=== PATIENT | female | born 1960 | race Caucasian/White ===

== ENCOUNTER 2018-01-25 16:19 | Inpatient (IN) ==
[2018-01-25] MEDS ORDERED: Albuterol 2.5 MG/3 ML NEBULIZER IH ONE (16:38)
[2018-01-25] MEDS ORDERED: Ipratropium/Albuterol Neb 3 ML IH ONE (16:38)
[2018-01-25] MEDS ORDERED: predniSONE 20 MG TABLET PO ONE (16:38)
[2018-01-25 16:49] LABS: Basophils % 0.6 %; Eosinophils # 0.2 K/mcL (0.0-0.6); Eosinophils % 2.7 %; Hemoglobin 14.8 g/dL (11.5-15.4); Immature Granulocytes % 0.3 % (0-4); Lymphocytes # 1.6 K/mcL (0.6-4.6); Mean Corpuscular HGB Conc 32.9 g/dL (31.6-35.5); Mean Corpuscular Hemoglobin 29.3 pg (28.0-33.3); Mean Corpuscular Volume 89.1 fL (83.0-100.0); Mean Platelet Volume 12.3 fL (9.4-12.4); Monocytes # 0.5 K/mcL (0.0-1.3); Neutrophils # 4.4 K/mcL (1.6-8.9); Platelet Count 163 K/mcL (140-400); Red Blood Count 5.05 M/mcL (3.82-4.97); Red Cell Distribution Width 13.1 % (11.5-14.5); Segmented Neutrophils % 65.4 %
--- NOTE | 2018-01-25 16:53 | Emergency Department Note ---
Disposition Clinical Impression: Acute exacerbation of chronic obstructive airways disease Disposition: Admitted As Inpatient Condition: Fair Referrals: Eduard Hoff MD [Primary Care Provider] - Forms: ED Satisfaction Letter Time of Disposition: 19:30 General Adult HPI - General Chief complaint: ED Shortness of Breath/Dyspnea Stated complaint: PAM Time Seen by Provider: 01/25/18 16:30 Source: patient Mode of arrival: EMS Limitations: no limitations - History of Present Illness HPI Narrative: This is a 57-year-old female with a history of COPD who reports a cough and shortness of breath that has been present for approximately the last 24 hours. Cough is nonproductive. She also reports bilateral chest pain for the last 12- 16 hours. Pain Scale: 5 - Related Data Home Medications Medication Instructions Recorded Confirmed Albuterol Neb [Proventil Neb] 2.5 mg IH Q4HR PRN 03/04/16 03/04/16 Citalopram [CeleXA] 20 mg PO DAILY 03/04/16 03/04/16 Fluticasone/Vilanterol [Breo 1 each IH DAILY 03/04/16 03/04/16 Ellipta 100-25 Mcg INH] Furosemide [Lasix] 20 mg PO DAILY 03/04/16 03/04/16 Gabapentin [Neurontin] 600 mg PO DAILY 03/04/16 03/04/16 Guaifenesin [Mucinex] 600 mg PO DAILY 03/04/16 03/04/16 Lisinopril [Zestril] 5 mg PO DAILY 03/04/16 03/04/16 Spironolactone [Aldactone] 25 mg PO DAILY 03/04/16 03/04/16 Tizanidine HCl [Zanaflex] 4 mg PO TID 03/04/16 03/04/16 TraZODone 50 mg PO HS 03/04/16 03/04/16 Umeclidinium [place] [Incruse 62.5 mcg IH DAILY 03/04/16 03/04/16 Ellipta] Previous Rx's Medication Instructions Recorded Cephalexin [Keflex] 500 mg PO QID #14 capsule 11/09/16 Allergies Allergy/AdvReac Type Severity Reaction Status Date / Time aspirin AdvReac Vomiting Verified 03/04/16 14:18 Sulfa (Sulfonamide AdvReac Vomiting Verified 03/04/16 14:18 Antibiotics) All systems ED: reviewed and negative except as stated. Cardiovascular: Reports: chest pain Respiratory: Reports: cough, dyspnea Past Medical History - Past Medical History Medical history: Reports: cancer, COPD, fibromyalgia, GERD, glaucoma, TIA, venous stasis, other Surgical history: Reports: cholecystectomy, hysterectomy, orthopedic, other Psychiatric history: Reports: anxiety, depression FLASH WELDER history: Reports: no FLASH WELDER history - Social History Smoking Status: Current every day smoker Smokeless Tobacco Status: No Alcohol use: Reports: occasionally Drug use: Reports: none Physical Exam - General Limitations: no limitations General appearance: alert, anxious, in distress (In [id number] restaurant distress) - Head Head exam: atraumatic, normocephalic, normal inspection - Eye Eye exam: Present: normal appearance, PERRL, EOMI. Absent: scleral icterus - Chest Chest inspection: Present: normal inspection, symmetric chest wall rise - Respiratory Respiratory exam: Present: respiratory distress, wheezes (There are extremely wheezes in all amado, no rhonchi), accessory muscle use, prolonged expiratory phase - Cardiovascular Cardiovascular exam: Present: normal rhythm, tachycardia, normal heart sounds - Abdominal Exam Abdominal exam: Present: soft, Non-Tender. Absent: tenderness, distention, guarding, rebound, rigidity - Extremities Exam Extremities exam: Present: pedal edema (There is severe nonpitting bilateral pedal edema consistent with the patient's history of lymphedema) - Neurological Exam Neurological exam: Present: alert, oriented X3 - Psychiatric Psychiatric exam: Present: normal affect, normal mood - Skin Skin exam: Present: warm, dry, intact, normal color Course Course Narrative: This is a 49-year-old female with a history of COPD as well as pulmonary hypertension with 24 hours of shortness of breath with nonproductive cough. Vital Signs Temperature 98.6 F 01/25/18 16:22 Pulse Rate 105 01/25/18 16:22 Respiratory Rate 24 01/25/18 16:22 Blood Pressure 126/83 01/25/18 16:22 O2 Sat by Pulse Oximetry 99 01/25/18 16:22 Temperature 98.1 F 01/25/18 18:03 Pulse Rate 96 01/25/18 18:03 Respiratory Rate 24 01/25/18 18:03 Blood Pressure 140/63 01/25/18 18:03 O2 Sat by Pulse Oximetry 98 01/25/18 18:03 Oxygen Delivery Oxygen Delivery Room Air Medical Decision Making - MDM Narrative Medical decision making narrative: This is a 57 y/o female with COPD exacerbation She failed a walk test. I discussed her case with the stoneworking belt sander hospitalist, who accepted her for admission - Lab Data Lab results reviewed: Yes I reviewed the patient's lab results. Lab results narrative: CBC was unremarkable BMP was unremarkable Troponin was low Result diagrams: 01/25/18 16:36 01/25/18 16:36 Lab Results 01/25/18 01/25/18 Range/Units 16:36 16:36 WBC 6.7 (4.3-11.1) K/mcL RBC 5.05 H (3.82-4.97) M/mcL Hgb 14.8 (11.5-15.4) g/dL Hct 45.0 H (35.3-44.9) % MCV 89.1 (83.0-100.0) fL MCH 29.3 (28.0-33.3) pg MCHC 32.9 (31.6-35.5) g/dL RDW 13.1 (11.5-14.5) % Plt Count 163 (140-400) K/mcL MPV 12.3 (9.4-12.4) fL Immature Gran % 0.3 (0-4) % Seg Neutrophils % 65.4 % Lymphocytes % 23.0 % Monocytes % 8.0 % Eosinophils % 2.7 % Basophils % 0.6 % Neutrophils # 4.4 (1.6-8.9) K/mcL Lymphocytes # 1.6 (0.6-4.6) K/mcL Monocytes # 0.5 (0.0-1.3) K/mcL Eosinophils # 0.2 (0.0-0.6) K/mcL Basophils # 0.0 (0.0-0.2) K/mcL Sodium 138 (136-145) mEq/L Potassium 3.7 (3.5-5.1) mEq/L Chloride 101 (98-107) mEq/L Carbon Dioxide 30 H (23-29) mEq/L BUN 9 (6-20) mg/dL Creatinine 0.97 (0.60-1.20) mg/dL Est GFR ( Amer) > 60 (> 60) Est GFR (Non-Af Amer) 59 L (> 60) BUN/Creatinine Ratio 9 (6-26) Glucose 121 H (70-105) mg/dL Calculated Osmolality 286 (280-300) Calcium 9.2 (8.6-10.3) mg/dL Troponin I < 0.03 (< 0.04) ng/mL - Radiology Data Radiology results reviewed: Yes I reviewed the patient's radiology results. Chest x-ray showed no acute process - EKG Data EKG #1 EKG attestation: Yes I reviewed and interpreted this EKG. EKG results narrative: ECG shows sinus tachycardia at 100 bpm, NH interval is slightly prolonged at 206 ms, right bundle branch block,, ST depression in lead V6 Critical Care Time Critical Care Time: Yes Total Critical Care Time: 15 Attestation: 15 min of CCT independent of separately billable procedures
[2018-01-25 17:13] LABS: BUN/Creatinine Ratio 9 (6-26); Blood Urea Nitrogen 9 mg/dL (6-20); Calcium 9.2 mg/dL (8.6-10.3); Carbon Dioxide 30 mEq/L (23-29); Chloride 101 mEq/L (98-107); Glucose 121 mg/dL (70-105); Osmolality,Calculated 286 (280-300); Potassium 3.7 mEq/L (3.5-5.1); Sodium 138 mEq/L (136-145); eGFR For Non-African Americans 59 (> 60)
[2018-01-25 17:14] LABS: Troponin I < 0.03 ng/mL (< 0.04)
[2018-01-25] MEDS: Acetaminophen 325 MG TABLET PO PRN (22:49)
[2018-01-26] MEDS ORDERED: Naloxone 0.4 MG/ML INJ IVP PRN (01:07)
[2018-01-26] MEDS ORDERED: Albuterol 2.5 MG/3 ML NEBULIZER IH PRN (01:08)
[2018-01-26] MEDS: Ipratropium/Albuterol Neb 3 ML IH SCH ×5 (01:15→23:32)
--- NOTE | 2018-01-26 01:18 | Internal Med History&Physical ---
Date of Encounter: 01/26/18 Time of Encounter: 00:45 Internal Medicine - H&P: HPI Chief complaint: COPD exacerbation Admitted From: Emergency Dept History of present illness: Ms. Dahl is a 57 year old female Patient presented to the emergency room with a 2 day history of difficulty breathing. She states that she is not on oxygen at home, and has increased cough, rattling and wheezing this. She has this every now and then, but for the last 2 days it is increasingly getting worse to the point where she he was scared. She checks her oxygen at home, and it has ranged anywhere between 80% and 93%. Normally she is anywhere between 94% and 98%. She is a 2 pack per day smoker, and has smoked since she was 8 years old. She works as an insurance claims clerk, works from home and rarely goes outside. She says that she basically does not leave her house and gets no exercise. She had been seeing a primary care doctor but has not seen a doctor in over a year since her doctor moved away. In the emergency room, CBC and BMP were within normal limits. Troponin was less than 0.03. Chest x-ray showed no acute findings. She was given breathing treatment, steroids and was attempted to be sent home however she was unable to ambulate very far without becoming hypoxic. She was admitted to hospital for further management. Upon my assessment patient states that she is breathing much better. She was sleeping in the chair prior to my arrival. She denies nausea, vomiting, diarrhea, constipation. She denies chest pain, but does have bilateral shoulder pain which she says is from her difficulty breathing. She denies abdominal pain as well. She says that she has pitting edema in her lower extremities which has been chronic and this is actually better than it has been in the past. She has not taken any medications in over a year since her doctor left. I discussed with her CODE STATUS, and she indicated that she does not want to be resuscitated and did not want to be intubated. She stated that "everyone has an expiration date, and I do not feel like mind should be much longer." Past Med Surg Social Fam HX - Past Medical History Medical history: cancer, COPD, fibromyalgia, GERD, glaucoma, TIA, venous stasis, other Additional medical history: pulmonary hypertension, uterine cancer, venous insufficiency, Reflex sympathic dystrophy (chronic regional pain syndrome) Psychiatric history: anxiety, depression - Past Surgical History Surgical History: cholecystectomy, hysterectomy, orthopedic, other Additional surgical history: tonsil/adnoid removed, left tendon repaired - Social History Smoking Status: Current every day smoker Smokeless Tobacco Status: No Alcohol use: occasionally Drug use: none - Family History Mother Living Status: Still Living Hx Family Cardiac Disorders: Yes Hx Family Respiratory Disorders: Yes (copd) Hx Family Cancer: Yes Hx Family Endocrine Disorder: Yes Hx Family Neuromuscular Disorders: Yes Internal Medicine - H&P: Meds Albuterol Neb [Proventil Neb] 2.5 mg IH Q4HR PRN 03/04/16 [History] Citalopram [CeleXA] 20 mg PO DAILY 03/04/16 [History] Fluticasone/Vilanterol [Breo Ellipta 100-25 Mcg INH] 1 each IH DAILY 03/04/16 [History] Furosemide [Lasix] 20 mg PO DAILY 03/04/16 [History] Gabapentin [Neurontin] 600 mg PO DAILY 03/04/16 [History] Guaifenesin [Mucinex] 600 mg PO DAILY 03/04/16 [History] Lisinopril [Zestril] 5 mg PO DAILY 03/04/16 [History] Spironolactone [Aldactone] 25 mg PO DAILY 03/04/16 [History] Tizanidine HCl [Zanaflex] 4 mg PO TID 03/04/16 [History] TraZODone 50 mg PO HS 03/04/16 [History] Umeclidinium [place] [Incruse Ellipta] 62.5 mcg IH DAILY 03/04/16 [History] Cephalexin [Keflex] 500 mg PO QID #14 capsule 11/09/16 [Rx] Allergy/AdvReac Type Severity Reaction Status Date / Time aspirin AdvReac Vomiting Verified 03/04/16 14:18 Sulfa (Sulfonamide AdvReac Vomiting Verified 03/04/16 14:18 Antibiotics) All Systems PM: A 10-system review of systems was performed and is negative for pertinent findings except as documented above in the HPI. - Constitutional Vitals: Temp Pulse Resp BP Pulse Ox 98.4 F 96 18 111/68 93 01/25/18 23:00 01/25/18 23:00 01/25/18 23:00 01/25/18 23:00 01/25/18 23:00 General appearance: Present: cooperative, morbidly obese, pleasant, no acute distress, answers questions appropriately Exam: As above - Head Head exam: Present: normal inspection - Eye Eye exam: Present: EOMI, normal appearance - Neck Neck exam general surgery: Absent: tenderness - Respiratory Respiratory exam: Present: prolonged expiratory phase, respiratory distress, wheezes. Absent: chest wall tenderness, CTAB - Cardiovascular Cardiovascular exam: Present: RRR. Absent: diastolic murmur, systolic murmur - GI/Abdominal GI/Abdominal exam: Present: normal bowel sounds, soft. Absent: tenderness - Extremities Exam Extremities exam: Present: pedal edema, warm, radial pulses palpable and s ymmetrical. Absent: calf tenderness, tenderness Additional comments: 3+ pitting edema in lower extremities. Chronic skin changes - Neurological Exam Neurological exam: Present: no focal deficits, strengths equal and symetr throughout. Absent: motor sensory deficit, facial droop, speech deficit Additional comments: Patient unable to walk very far - Skin Skin exam: Present: dry, normal color, warm Internal Med - H&P Results - Labs CBC & Chem 7: 01/26/18 03:25 01/26/18 03:25 Labs: Short CBC 01/25/18 Range/Units 16:36 WBC 6.7 (4.3-11.1) K/mcL Hgb 14.8 (11.5-15.4) g/dL Hct 45.0 H (35.3-44.9) % Plt Count 163 (140-400) K/mcL Neutrophils # 4.4 (1.6-8.9) K/mcL BMP 01/25/18 16:36 Sodium 138 Potassium 3.7 Chloride 101 Carbon Dioxide 30 H BUN 9 Creatinine 0.97 Glucose 121 H Calcium 9.2 Cardiac Enzymes 01/25/18 Range/Units 16:36 Troponin I < 0.03 (< 0.04) ng/mL - Impressions ITS Impressions Chest X-Ray 01/25/18 16:38 IMPRESSION: No acute findings. No change. D/ / 01/25/2018 17:46:55 Chris Mcmillan MD / [email or web address] Interpreting Provider: Chris Mcmillan MD - Assessment and plan (1) Acute exacerbation of chronic obstructive airways disease Current Visit: Yes Status: Acute Assessment and plan: Patient has had difficulty breathing for several days now. Continue breathing treatments Prednisone 40mg daily Azithromycin 500mg daily Nicotine patch Oxygen supplementation as needed. (2) Shortness of breath Current Visit: Yes Status: Acute Assessment and plan: Secondary to COPD exacerbation, treatment as above. (3) Lower extremity edema Current Visit: Yes Status: Acute Assessment and plan: Lasix 20mg IV. Patient has history of being on lasix 20mg daily. Has 3+ pitting edema. Consider echocardiogram today (4) Nicotine dependence Current Visit: Yes Status: Acute Assessment and plan: Nicotine patch. Patient also uses a vape. Qualifiers: Qualified Code(s): F17.210 - Nicotine dependence, cigarettes, uncomplicated (5) Noncompliance with medication regimen Current Visit: Yes Status: Acute Assessment and plan: Has not seen a medical provider in over 1 year. Will need set up with PCP at discharge. (6) DVT prophylaxis Current Visit: Yes Status: Acute Assessment and plan: subcutaneous Heparin - Time Spent With Patient Total time spent is greater than 50% in coordination of care (as documented) at patient's floor/unit and/or counseling patient: Greater than 35 minutes
[2018-01-26] MEDS: Azithromycin 500 MG in D5% in Water 250 ML IVPB SCH (01:56)
[2018-01-26] MEDS: Nicotine 21 MG PATCH.TD24 TD SCH (02:13)
[2018-01-26 04:38] LABS: Hematocrit 41.4 % (35.3-44.9); Hemoglobin 13.8 g/dL (11.5-15.4); Mean Corpuscular HGB Conc 33.3 g/dL (31.6-35.5); Mean Corpuscular Hemoglobin 29.7 pg (28.0-33.3); Mean Corpuscular Volume 89.2 fL (83.0-100.0); Mean Platelet Volume 12.8 fL (9.4-12.4); Platelet Count 162 K/mcL (140-400); Red Blood Count 4.64 M/mcL (3.82-4.97); Red Cell Distribution Width 13.2 % (11.5-14.5)
[2018-01-26 05:18] LABS: BUN/Creatinine Ratio 14 (6-26); Blood Urea Nitrogen 12 mg/dL (6-20); Calcium 9.3 mg/dL (8.6-10.3); Carbon Dioxide 27 mEq/L (23-29); Chloride 102 mEq/L (98-107); Glucose 243 mg/dL (70-105); Osmolality,Calculated 286 (280-300); Potassium 4.7 mEq/L (3.5-5.1); Sodium 134 mEq/L (136-145); eGFR For Non-African Americans > 60 (> 60)
[2018-01-26] MEDS: *HR* Heparin 5,000 UNIT/ML VIAL SQ SCH ×3 (06:19→22:49)
[2018-01-26] MEDS: Furosemide 20 MG/2 ML VIAL IVP SCH (08:41)
[2018-01-26] MEDS ORDERED: predniSONE 20 MG TABLET PO SCH (09:00)
--- NOTE | 2018-01-26 15:02 | Internal Med Progress Note ---
Hospitalist Progress Note - Encounter Date of Encounter: 01/26/18 Time of Encounter: 14:59 - Subjective Interval History: Continue to have dyspnea, worse with exertion. Non-productive cough is persistent - Exam Vitals: Temp Pulse Resp BP Pulse Ox 98.1 F 77 16 113/56 96 01/26/18 11:29 01/26/18 11:29 01/26/18 11:29 01/26/18 11:29 01/26/18 11:29 Exam: PHYSICAL EXAMINATION: GENERAL: The patient is a morbidly obese female who is alert and oriented x3. HEENT: Head is normocephalic and atraumatic. Extraocular muscles are intact. Pupils are equal, round, and reactive to light and accommodation. NECK: Supple. No carotid bruits. No lymphadenopathy or thyromegaly. LUNGS: Diminished to auscultation AP&L. HEART: Regular rate and rhythm, S1, S2 without murmurs, rubs or gallops. No JVD. ABDOMEN: Soft, nontender, and nondistended. Positive bowel sounds. No hepatosplenomegaly was noted. EXTREMITIES: Without any cyanosis, clubbing, rash, lesions. Positive for lymphedema, PT/DP pulses 1+ B/L NEUROLOGIC: Cranial nerves II through XII are grossly intact. SKIN: No ulceration or induration present. Positive for stasis dermatitis, and dry cracked, flaky skin on BLE - Assessment and Plan (1) Acute exacerbation of chronic obstructive airways disease Current Visit: Yes Status: Acute Assessment and Plan: Patient reporting progressive dyspnea, fatigue, and cough greater than 2 months Worse over the last week; history of COPD, noncompliant with medication regimen and/or follow-up Clinically, patient remained stable. Continues to have some mild conversational dyspnea, prolonged expiratory phase Lungs are diminished throughout with diminished air movement The patient reports she does not wear O2 at home hours requiring 5 L nasal cannula at this time to maintain SPO2 greater than 92% Continue treatment with aerosols, IV steroids and azithromycin Wean O2 as appropriate; continue nasal cannula for respiratory support Monitor SPO2 continuously Appears to easily fatigue with exertion Obtain PT/OT consult for further evaluation food services director for DC planning (2) Acute respiratory failure with hypoxia Current Visit: Yes Status: Acute Assessment and Plan: as above (3) Obesity hypoventilation syndrome Current Visit: Yes Status: Acute Assessment and Plan: discussed weight loss (4) Lower extremity edema Current Visit: Yes Status: Acute Assessment and Plan: h/o venous insufficiency chronic lymphedema BLE with chronic stasis dermatitis continue lasix 20mg IV (5) Nicotine dependence Current Visit: Yes Status: Acute Assessment and Plan: discussed tobacco cessation continue nicotine patch (6) Noncompliance with medication regimen Current Visit: Yes Status: Acute Assessment and Plan: Last PCP visit > 1 year ago will need PCP set-up at D/C will need to f/u with pulmonology at d/c could not find formal pulm testing; consider outpatient study DVT Prophylaxis: SC Heparin BID - Time Spent with Patient Total time spent is greater than 50% in coordination of care (as documented) at patient's floor/unit and/or counseling patient: less than 15 minutes Plan of Care Discussed with: patient Internal Medicine: Result - Labs CBC & Chem 7: 01/26/18 03:25 01/26/18 03:25 Labs: Short CBC 01/25/18 01/26/18 Range/Units 16:36 03:25 WBC 6.7 4.8 (4.3-11.1) K/mcL Hgb 14.8 13.8 (11.5-15.4) g/dL Hct 45.0 H 41.4 (35.3-44.9) % Plt Count 163 162 (140-400) K/mcL Neutrophils # 4.4 (1.6-8.9) K/mcL BMP 01/25/18 01/26/18 16:36 03:25 Sodium 138 134 L Potassium 3.7 4.7 D Chloride 101 102 Carbon Dioxide 30 H 27 BUN 9 12 Creatinine 0.97 0.84 Glucose 121 H 243 H Calcium 9.2 9.3 Cardiac Enzymes 01/25/18 Range/Units 16:36 Troponin I < 0.03 (< 0.04) ng/mL - Impressions Impressions Chest X-Ray 01/25/18 16:38 IMPRESSION: No acute findings. No change. D/ / 01/25/2018 17:46:55 Chris Mcmillan MD / marya Interpreting Provider: Chris Mcmillan MD Consult Discharge Plan - Plan Referrals: Eduard Hoff MD [Primary Care Provider] - (5) Nicotine dependence Qualifiers: Qualified Code(s): F17.210 - Nicotine dependence, cigarettes, uncomplicated
[2018-01-26] MEDS: Acetaminophen 325 MG TABLET PO PRN (19:30)
[2018-01-27] MEDS ORDERED: Ipratropium/Albuterol Neb 3 ML IH ONE (01:48)
[2018-01-27] MEDS: Azithromycin 500 MG in D5% in Water 250 ML IVPB SCH (02:00)
[2018-01-27] MEDS: Ipratropium/Albuterol Neb 3 ML IH SCH ×6 (03:40→23:03)
[2018-01-27 03:54] LABS: Basophils % 0.3 %; Eosinophils # 0.1 K/mcL (0.0-0.6); Eosinophils % 0.9 %; Hematocrit 38.6 % (35.3-44.9); Hemoglobin 12.8 g/dL (11.5-15.4); Immature Granulocytes % 0.5 % (0-4); Lymphocytes # 2.3 K/mcL (0.6-4.6); Lymphocytes % 26.6 %; Mean Corpuscular HGB Conc 33.2 g/dL (31.6-35.5); Mean Corpuscular Hemoglobin 29.6 pg (28.0-33.3); Mean Corpuscular Volume 89.4 fL (83.0-100.0); Mean Platelet Volume 12.5 fL (9.4-12.4); Monocytes # 0.8 K/mcL (0.0-1.3); Monocytes % 9.3 %; Neutrophils # 5.4 K/mcL (1.6-8.9); Platelet Count 158 K/mcL (140-400); Red Blood Count 4.32 M/mcL (3.82-4.97); Red Cell Distribution Width 13.2 % (11.5-14.5); Segmented Neutrophils % 62.4 %
[2018-01-27 04:14] LABS: BUN/Creatinine Ratio 19 (6-26); Blood Urea Nitrogen 19 mg/dL (6-20); Calcium 8.8 mg/dL (8.6-10.3); Carbon Dioxide 29 mEq/L (23-29); Chloride 101 mEq/L (98-107); Glucose 193 mg/dL (70-105); Osmolality,Calculated 290 (280-300); Potassium 3.9 mEq/L (3.5-5.1); Sodium 136 mEq/L (136-145); eGFR For Non-African Americans 58 (> 60)
[2018-01-27] MEDS: *HR* Heparin 5,000 UNIT/ML VIAL SQ SCH ×3 (04:49→21:23)
[2018-01-27] MEDS ORDERED: MethylPREDNISolone 40 MG/ML VIAL IVP SCH (06:00)
[2018-01-27] MEDS ORDERED: Perflutren Lipid Microsphere 1.3 ML in 0.9 % Sodium Chloride 8.7 ML IVP ONE (08:26)
[2018-01-27] MEDS: Nicotine 21 MG PATCH.TD24 TD SCH (09:02)
[2018-01-27] MEDS: Furosemide 20 MG/2 ML VIAL IVP SCH (09:04)
--- NOTE | 2018-01-27 09:33 | Internal Med Progress Note ---
Hospitalist Progress Note - Encounter Date of Encounter: 01/27/18 Time of Encounter: 09:36 - Subjective Interval History: Patient seen and evaluated at bedside. In mild/moderate distress due to cough and as of breath. Denies chest pain, abdominal pain. Patient reports that for about a year she has been having unintentional resting tremors in the lower and upper extremities. - Exam Vitals: Temp Pulse Resp BP Pulse Ox 97.8 F 84 16 118/69 97 01/27/18 07:02 01/27/18 07:02 01/27/18 08:04 01/27/18 07:02 01/27/18 08:04 Exam: General: Alert and oriented 4. In mild/moderate distress due to cough and wheezing, shortness of breath. Skin: Normal color, no rash, no lesions. HEENT: EOM, pupils equal, round and reactive. Cardiovascular: RRR, Normal S1 & S2, no rubs, murmurs or gallops. JVD not appreciated due to short neck. Lungs: Scattered bilateral expiratory and inspiratory wheezing, no crackles, rales. Abdomen: Obese, Soft, non-tender, no rigidity. Extremities: Chronic venous insufficiency skin changes in the lower extremities. Neurological: Normal cognition and motor skills. Rest of the physical exam is non contributory - Assessment and Plan (1) Acute exacerbation of chronic obstructive airways disease Current Visit: Yes Status: Acute Assessment and Plan: Scattered bilateral wheezing. In mild respiratory distress due to cough and wh eezing. Plan Increase Solu-Medrol to 60mg/iv every 8 hours Duo-Nebs Q4RT scheduled Continue albuterol nebs when necessary Incentive spirometry ABG Patient educated about importance of smoking cessation. Continue O2 by nasal cannula, titrate for O2 sat duration more than 92%. As patient is on high dose IV steroids will start lispro high dose sliding scale Accu-checks AC/HS Continue furosemide 20 mg IV daily. Started on empiric antibiotic coverage Sputum cultures and Gram stain Urine for Legionella and strep (2) Acute respiratory failure with hypoxia Current Visit: Yes Status: Acute Assessment and Plan: Most likely secondary to COPD exacerbation. Patient still requiring 5 L of oxygen by nasal cannula. Plan of care as above (3) Lower extremity edema Current Visit: Yes Status: Chronic Assessment and Plan: Patient has a history of chronic lymphedema and venous insufficiency. will order Venous duplex of the lower extremity bilaterally. (4) Nicotine dependence Current Visit: Yes Status: Chronic Assessment and Plan: Continue nicotine patch. (5) Obesity hypoventilation syndrome Current Visit: Yes Status: Chronic (6) Occasional tremors Current Visit: Yes Status: Acute Assessment and Plan: Patient complains of occasional wheezing intentional tremors of the upper and lower extremities. She also reports tremors while she is sleeping. These could be secondary to Possible benign essential tremors Recommended neurology follow-up When wheezing has resolved consider starting the patient on a trial of low dose bb. iron panel (7) Hyperglycemia Current Visit: Yes Status: Acute Assessment and Plan: No documented diabetes history. Possible due to her steroids A1c Carb controlled diet Started on lispro sliding scale high-dose. DVT Prophylaxis: Continue heparin 5000 units subcutaneous every 8 or DVT prophylaxis - Summary of Assessment and Plan Summary of Assessment and Plan: Patient to remain in the hospital. Still reporting respiratory distress. Requiring 5 L of oxygen. - Time Spent with Patient Total time spent is greater than 50% in coordination of care (as documented) at patient's floor/unit and/or counseling patient: 25 - 35 minutes Plan of Care Discussed with: patient (And the nurse) Internal Medicine: Result - Labs CBC & Chem 7: 01/27/18 03:25 01/27/18 03:25 Labs: Short CBC 01/27/18 Range/Units 03:25 WBC 8.6 D (4.3-11.1) K/mcL Hgb 12.8 (11.5-15.4) g/dL Hct 38.6 (35.3-44.9) % Plt Count 158 (140-400) K/mcL Neutrophils # 5.4 (1.6-8.9) K/mcL BMP 01/27/18 03:25 Sodium 136 Potassium 3.9 Chloride 101 Carbon Dioxide 29 BUN 19 Creatinine 0.99 Glucose 193 H Calcium 8.8 Consult Discharge Plan - Plan Referrals: dEuard Hoff MD [Primary Care Provider] - (4) Nicotine dependence Qualifiers: Nicotine product type: cigarettes Substance use status: uncomplicated Qualified Code(s): F17.210 - Nicotine dependence, cigarettes, uncomplicated
[2018-01-27] MEDS ORDERED: *HR* Dextrose 50 % in Water (Syg) 50 ML SYRINGE IVP PRN (09:34)
[2018-01-27] MEDS ORDERED: Dextrose Gel 15 GM/37.5 ML TUBE PO PRN ×2 (09:34)
[2018-01-27] MEDS ORDERED: D5% in Water 1,000 ML IVC PRN (09:34)
[2018-01-27] MEDS: MethylPREDNISolone 40 MG/ML VIAL IVP SCH ×2 (11:00→17:54)
[2018-01-27] MEDS: Insulin LISPRO 300 UNITS/3 ML VIAL SQ SCH ×2 (11:15→17:54)
[2018-01-27 12:00] LABS: ABG Base Excess 6 mEq/L (-2 to 3); ABG HCO3 32 mEq/L (21-27); ABG Oxygen Saturation 92 % (95-98); ABG PCO2 47 mmHg (35-45); ABG PH 7.44 pH Units (7.32-7.45); ABG PO2 62 mmHg (85-104); ABG TCO2 33 mEq/L (20-26)
[2018-01-28] MEDS: MethylPREDNISolone 40 MG/ML VIAL IVP SCH ×3 (03:07→18:26)
[2018-01-28] MEDS: Azithromycin 500 MG in D5% in Water 250 ML IVPB SCH (03:07)
[2018-01-28] MEDS: Ipratropium/Albuterol Neb 3 ML IH SCH ×6 (03:39→22:57)
[2018-01-28 05:05] LABS: Basophils % 0.1 %; Hematocrit 42.1 % (35.3-44.9); Hemoglobin 14.1 g/dL (11.5-15.4); Immature Granulocytes % 0.7 % (0-4); Lymphocytes # 1.1 K/mcL (0.6-4.6); Lymphocytes % 15.3 %; Mean Corpuscular HGB Conc 33.5 g/dL (31.6-35.5); Mean Corpuscular Hemoglobin 29.8 pg (28.0-33.3); Mean Platelet Volume 12.6 fL (9.4-12.4); Monocytes # 0.2 K/mcL (0.0-1.3); Monocytes % 2.5 %; Neutrophils # 5.6 K/mcL (1.6-8.9); Platelet Count 171 K/mcL (140-400); Red Blood Count 4.73 M/mcL (3.82-4.97); Red Cell Distribution Width 13.3 % (11.5-14.5); Segmented Neutrophils % 81.4 %
[2018-01-28 05:24] LABS: BUN/Creatinine Ratio 22 (6-26); Blood Urea Nitrogen 20 mg/dL (6-20); Calcium 9.7 mg/dL (8.6-10.3); Carbon Dioxide 30 mEq/L (23-29); Chloride 98 mEq/L (98-107); Glucose 265 mg/dL (70-105); Magnesium 2.3 mg/dL (1.6-2.6); Osmolality,Calculated 290 (280-300); Potassium 4.4 mEq/L (3.5-5.1); Sodium 134 mEq/L (136-145); eGFR For Non-African Americans > 60 (> 60)
[2018-01-28] MEDS: *HR* Heparin 5,000 UNIT/ML VIAL SQ SCH ×3 (05:29→21:01)
[2018-01-28 05:55] LABS: Estimated Average Glucose 114 mg/dl; Hemoglobin A1C 5.6 %
[2018-01-28] MEDS: Furosemide 20 MG/2 ML VIAL IVP SCH (08:02)
[2018-01-28] MEDS: Nicotine 21 MG PATCH.TD24 TD SCH (08:02)
[2018-01-28] MEDS: Insulin LISPRO 300 UNITS/3 ML VIAL SQ SCH ×3 (08:03→17:49)
[2018-01-28] MEDS: Acetaminophen 325 MG TABLET PO PRN ×2 (10:24→21:01)
[2018-01-28 11:28] LABS: Adenovirus Not Detected (Not Detect); Bordetella Pertussis Not Detected (Not Detect); Chlamydophila pneumoniae Not Detected (Not Detect); Coronavirus 229E Not Detected (Not Detect); Coronavirus HKU1 Not Detected (Not Detect); Coronavirus NL63 Not Detected (Not Detect); Coronavirus OC43 Not Detected (Not Detect); Human Metapneumovirus Not Detected (Not Detect); Human Rhinovirus/Enterovirus DETECTED (Not Detect); Influenza A Subtype 2009 H1 Not Detected (Not Detect); Influenza A Untypeable Not Detected (Not Detect); Influenza B Not Detected (Not Detect); Mycoplasma pneumoniae Not Detected (Not Detect); Parainfluenza Virus 1 Not Detected (Not Detect); Parainfluenza Virus 2 Not Detected (Not Detect); Parainfluenza Virus 3 Not Detected (Not Detect); Parainfluenza Virus 4 Not Detected (Not Detect); Respiratory Syncytial Virus Not Detected (Not Detect)
--- NOTE | 2018-01-28 13:03 | Internal Med Progress Note ---
Hospitalist Progress Note - Encounter Date of Encounter: 01/28/18 Time of Encounter: 09:00 - Subjective Interval History: Patient was seen and examined at bedside. She is sitting up in a chair at bedside. Has been experiencing increasing cough however no sputum production. Denies any shortness of breath or chest pain at this time. - Exam Vitals: Temp Pulse Resp BP Pulse Ox 97.9 F 96 20 159/62 94 01/28/18 11:52 01/28/18 11:52 01/28/18 11:52 01/28/18 11:52 01/28/18 11:52 Exam: General: Alert and oriented 4. In mild/moderate distress due to cough and whe ezing, shortness of breath. Skin: Normal color, no rash, no lesions. HEENT: EOM, pupils equal, round and reactive. Cardiovascular: RRR, Normal S1 & S2, no rubs, murmurs or gallops. JVD not appreciated due to short neck. Lungs: Scattered bilateral expiratory and inspiratory wheezing, no crackles, ra les.-Moist nonproductive cough Abdomen: Obese, Soft, non-tender, no rigidity. Extremities: Chronic venous insufficiency skin changes in the lower extremities. Neurological: Normal cognition and motor skills. Rest of the physical exam is non contributory - Assessment and Plan (1) Acute exacerbation of chronic obstructive airways disease Current Visit: Yes Status: Acute Assessment and Plan: Scattered bilateral wheezing. In mild respiratory distress due to cough and wheezing. Plan Increase Solu-Medrol to 60mg/iv every 8 hours Duo-Nebs Q4RT scheduled Continue albuterol nebs when necessary Incentive spirometry ABG Patient educated about importance of smoking cessation. Continue O2 by nasal cannula, titrate for O2 sat duration more than 92%. As patient is on high dose IV steroids will start lispro high dose sliding scale Accu-checks AC/HS Continue furosemide 20 mg IV daily. Started on empiric antibiotic coverage Sputum cultures and Gram stain Urine for Legionella and strep 01/27 Continues to have scattered wheezes bilaterally. Continues to have moist nonproductive cough We will continue with Solu-Medrol 60 mg IV every 8 Continue with DuoNeb's Continue with oxygen titrated to maintain SPO2 greater than 92% Continue with azithromycin We will add Mucinex Check respiratory panel Sputum culture Urine for Legionella and strep-are negative (2) Lower extremity edema Current Visit: Yes Status: Chronic Assessment and Plan: Patient has a history of chronic lymphedema and venous insufficiency. will order Venous duplex of the lower extremity bilaterally. 01/28 History of chronic lymphedema and venous insufficiency Venous duplex of lower extremities ordered -pending results (3) Nicotine dependence Current Visit: Yes Status: Chronic Assessment and Plan: Continue nicotine patch. 01/28 Encouraged patient to stop smoking will continue nicotine patch (4) Obesity hypoventilation syndrome Current Visit: Yes Status: Chronic Assessment and Plan: discussed weight loss 01/28 Encouraged lifestyle changes including weight loss and exercise (5) Acute respiratory failure with hypoxia Current Visit: Yes Status: Acute Assessment and Plan: Most likely secondary to COPD exacerbation. Patient still requiring 5 L of oxygen by nasal cannula. Plan of care as above 01/28 Most likely secondary to COPD exacerbation Currently on 2 L nasal cannula See above (6) Occasional tremors Current Visit: Yes Status: Acute Assessment and Plan: Patient complains of occasional wheezing intentional tremors of the upper and lower extremities. She also reports tremors while she is sleeping. These could be secondary to Possible benign essential tremors Recommended neurology follow-up When wheezing has resolved consider starting the patient on a trial of low dose bb. iron panel 01/28 Patient will follow-up with neurology as outpatient- May trial low-dose beta carolin once wheezing has resolved Iron panel within normal limits (7) Hyperglycemia Current Visit: Yes Status: Acute Assessment and Plan: No documented diabetes history. Possible due to her steroids A1c Carb controlled diet Started on lispro sliding scale high-dose. 01/28 Blood glucose continues to be elevated most likely secondary to high-dose steroi ds A1c is 5.6 Continue with Accu-Cheks before meals at bedtime with sliding scale insulin at high-dose DVT Prophylaxis: Continue heparin 5000 units subcutaneous every 8 or DVT prophylaxis - Time Spent with Patient Total time spent is greater than 50% in coordination of care (as documented) at patient's floor/unit and/or counseling patient: Internal Medicine: Result - Labs CBC & Chem 7: 01/28/18 04:24 01/28/18 04:24 Labs: Short CBC 01/28/18 Range/Units 04:24 WBC 6.9 (4.3-11.1) K/mcL Hgb 14.1 (11.5-15.4) g/dL Hct 42.1 (35.3-44.9) % Plt Count 171 (140-400) K/mcL Neutrophils # 5.6 (1.6-8.9) K/mcL BMP 01/28/18 04:24 Sodium 134 L Potassium 4.4 Chloride 98 Carbon Dioxide 30 H BUN 20 Creatinine 0.89 Glucose 265 H Calcium 9.7 - ABG Interpretation ABG results: ABG ABG pH 7.44 pH Units (7.32-7.45) 01/27/18 11:55 ABG pCO2 47 mmHg (35-45) H 01/27/18 11:55 ABG pO2 62 mmHg (85-104) L 01/27/18 11:55 ABG O2 Saturation 92 % (95-98) L 01/27/18 11:55 Consult Discharge Plan - Plan Referrals: Eduard Hoff MD [Primary Care Provider] - (3) Nicotine dependence Qualifiers: Nicotine product type: cigarettes Substance use status: uncomplicated Qualified Code(s): F17.210 - Nicotine dependence, cigarettes, uncomplicated
[2018-01-29] MEDS: Azithromycin 500 MG in D5% in Water 250 ML IVPB SCH (02:13)
[2018-01-29] MEDS: MethylPREDNISolone 40 MG/ML VIAL IVP SCH ×3 (02:14→17:14)
[2018-01-29] MEDS: Ipratropium/Albuterol Neb 3 ML IH SCH ×6 (03:12→23:49)
[2018-01-29] MEDS: *HR* Heparin 5,000 UNIT/ML VIAL SQ SCH ×3 (05:20→21:15)
[2018-01-29 05:42] LABS: Basophils % 0.1 %; Immature Granulocytes % 0.5 % (0-4); Lymphocytes # 1.1 K/mcL (0.6-4.6); Lymphocytes % 15.2 %; Mean Corpuscular HGB Conc 33.3 g/dL (31.6-35.5); Mean Corpuscular Hemoglobin 29.9 pg (28.0-33.3); Mean Corpuscular Volume 89.7 fL (83.0-100.0); Mean Platelet Volume 12.3 fL (9.4-12.4); Monocytes # 0.2 K/mcL (0.0-1.3); Neutrophils # 5.9 K/mcL (1.6-8.9); Platelet Count 170 K/mcL (140-400); Red Blood Count 4.68 M/mcL (3.82-4.97); Red Cell Distribution Width 13.2 % (11.5-14.5); Segmented Neutrophils % 81.2 %
[2018-01-29 06:02] LABS: BUN/Creatinine Ratio 22 (6-26); Blood Urea Nitrogen 22 mg/dL (6-20); Calcium 9.7 mg/dL (8.6-10.3); Carbon Dioxide 31 mEq/L (23-29); Chloride 97 mEq/L (98-107); Glucose 229 mg/dL (70-105); Osmolality,Calculated 291 (280-300); Potassium 4.3 mEq/L (3.5-5.1); Sodium 135 mEq/L (136-145); eGFR For Non-African Americans 56 (> 60)
[2018-01-29] MEDS: Nicotine 21 MG PATCH.TD24 TD SCH (08:26)
[2018-01-29] MEDS: Insulin LISPRO 300 UNITS/3 ML VIAL SQ SCH ×3 (08:27→17:13)
[2018-01-29] MEDS: Furosemide 20 MG/2 ML VIAL IVP SCH (08:28)
[2018-01-29] MEDS: Acetaminophen 325 MG TABLET PO PRN ×2 (08:36→21:14)
--- NOTE | 2018-01-29 16:32 | Internal Med Progress Note ---
Hospitalist Progress Note - Encounter Date of Encounter: 01/29/18 Time of Encounter: 10:00 - Subjective Interval History: Patient was seen and examined at bedside. She is sitting up in a chair at bedside. Denies any chest pain has been ambulating in the room still requires oxygen supplementation. Continues to have cough unable to cough up sputum - Exam Vitals: Temp Pulse Resp BP Pulse Ox 97.6 F 75 14 127/62 99 01/29/18 15:28 01/29/18 15:28 01/29/18 16:20 01/29/18 15:28 01/29/18 16:20 Exam: General: Alert and oriented 4. In mild/moderate distress due to cough and wheezing, shortness of breath. Skin: Normal color, no rash, no lesions. HEENT: EOM, pupils equal, round and reactive. Cardiovascular: RRR, Normal S1 & S2, no rubs, murmurs or gallops. JVD not appreciated due to short neck. Lungs: Scattered bilateral expiratory and inspiratory wheezing, no crackles, rales.-Moist nonproductive cough Abdomen: Obese, Soft, non-tender, no rigidity. Extremities: Chronic venous insufficiency skin changes in the lower extremities. Neurological: Normal cognition and motor skills. Rest of the physical exam is non contributory - Assessment and Plan (1) Acute exacerbation of chronic obstructive airways disease Current Visit: Yes Status: Acute Assessment and Plan: Scattered bilateral wheezing. In mild respiratory distress due to cough and wheezing. Plan Increase Solu-Medrol to 60mg/iv every 8 hours Duo-Nebs Q4RT scheduled Continue albuterol nebs when necessary Incentive spirometry ABG Patient educated about importance of smoking cessation. Continue O2 by nasal cannula, titrate for O2 sat duration more than 92%. As patient is on high dose IV steroids will start lispro high dose sliding scale Accu-checks AC/HS Continue furosemide 20 mg IV daily. Started on empiric antibiotic coverage Sputum cultures and Gram stain Urine for Legionella and strep 01/28 Continues to have scattered wheezes bilaterally. Continues to have moist nonproductive cough We will continue with Solu-Medrol 60 mg IV every 8 Continue with DuoNeb's Continue with oxygen titrated to maintain SPO2 greater than 92% Continue with azithromycin We will add Mucinex Check respiratory panel Sputum culture Urine for Legionella and strep-are negative 01/29 Respiratory effort has improved. Lung sounds with faint wheezes bilaterally continues to have nonproductive cough Continue with Solu-Medrol Continue with DuoNeb's Continue with oxygen titrated to maintain SPO2 greater than 90% Continue with azithromycin Continue to Mucinex Respiratory panel does show entero/rhino Awaiting sputum culture Urine for Legionella and strep are negative (2) Lower extremity edema Current Visit: Yes Status: Chronic Assessment and Plan: Patient has a history of chronic lymphedema and venous insufficiency. will order Venous duplex of the lower extremity bilaterally. 01/28 History of chronic lymphedema and venous insufficiency Venous duplex of lower extremities ordered -pending results 01/29 History of chronic lymphedema and venous insufficiency-venous duplex of lower extremities pending (3) Nicotine dependence Current Visit: Yes Status: Chronic Assessment and Plan: Continue nicotine patch. 01/28 Encouraged patient to stop smoking will continue nicotine patch (4) Obesity hypoventilation syndrome Current Visit: Yes Status: Chronic Assessment and Plan: discussed weight loss 01/28 Encouraged lifestyle changes including weight loss and exercise 01/29 Encouraged lifestyle changes weight loss and exercise (5) Acute respiratory failure with hypoxia Current Visit: Yes Status: Acute Assessment and Plan: Most likely secondary to COPD exacerbation. Patient still requiring 5 L of oxygen by nasal cannula. Plan of care as above 01/28 Most likely secondary to COPD exacerbation Currently on 2 L nasal cannula See above 01/29 Secondary to COPD exacerbation Continues to require oxygen supplementation See above (6) Occasional tremors Current Visit: Yes Status: Acute Assessment and Plan: Patient complains of occasional wheezing intentional tremors of the upper and lower extremities. She also reports tremors while she is sleeping. These could be secondary to Possible benign essential tremors Recommended neurology follow-up When wheezing has resolved consider starting the patient on a trial of low dose bb. iron panel 01/28 Patient will follow-up with neurology as outpatient- May trial low-dose beta carolin once wheezing has resolved Iron panel within normal limits 01/29 Patient follow neurology as outpatient May trial low-dose beta carolin once wheezing has resolved Iron panel is within normal limits (7) Hyperglycemia Current Visit: Yes Status: Acute Assessment and Plan: No documented diabetes history. Possible due to her steroids A1c Carb controlled diet Started on lispro sliding scale high-dose. 01/28 Blood glucose continues to be elevated most likely secondary to high-dose st eroids A1c is 5.6 Continue with Accu-Cheks before meals at bedtime with sliding scale insulin at high-dose 01/29 Continue to monitor continued Accu-Cheks before meals at bedtime Regular Insulin DVT Prophylaxis: Continue heparin 5000 units subcutaneous every 8 or DVT prophylaxis - Time Spent with Patient Total time spent is greater than 50% in coordination of care (as documented) at patient's floor/unit and/or counseling patient: Internal Medicine: Result - Labs CBC & Chem 7: 01/29/18 05:27 01/29/18 05:27 Labs: Short CBC 01/29/18 Range/Units 05:27 WBC 7.3 (4.3-11.1) K/mcL Hgb 14.0 (11.5-15.4) g/dL Hct 42.0 (35.3-44.9) % Plt Count 170 (140-400) K/mcL Neutrophils # 5.9 (1.6-8.9) K/mcL BMP 01/29/18 05:27 Sodium 135 L Potassium 4.3 Chloride 97 L Carbon Dioxide 31 H BUN 22 H Creatinine 1.02 Glucose 229 H Calcium 9.7 - ABG Interpretation ABG results: ABG ABG pH 7.44 pH Units (7.32-7.45) 01/27/18 11:55 ABG pCO2 47 mmHg (35-45) H 01/27/18 11:55 ABG pO2 62 mmHg (85-104) L 01/27/18 11:55 ABG O2 Saturation 92 % (95-98) L 01/27/18 11:55 Consult Discharge Plan - Plan Referrals: Eduard Hoff MD [Primary Care Provider] - (3) Nicotine dependence Qualifiers: Nicotine product type: cigarettes Substance use status: uncomplicated Qualified Code(s): F17.210 - Nicotine dependence, cigarettes, uncomplicated
[2018-01-29] MEDS: Melatonin 3 MG TABLET PO PRN (21:15)
[2018-01-30] MEDS: Azithromycin 500 MG in D5% in Water 250 ML IVPB SCH (02:52)
[2018-01-30] MEDS: MethylPREDNISolone 40 MG/ML VIAL IVP SCH ×2 (02:53→10:30)
[2018-01-30] MEDS: Ipratropium/Albuterol Neb 3 ML IH SCH ×5 (03:42→20:53)
[2018-01-30 05:00] LABS: Basophils % 0.2 %; Hematocrit 44.2 % (35.3-44.9); Hemoglobin 14.4 g/dL (11.5-15.4); Immature Granulocytes % 0.6 % (0-4); Lymphocytes # 1.2 K/mcL (0.6-4.6); Lymphocytes % 18.3 %; Mean Corpuscular HGB Conc 32.6 g/dL (31.6-35.5); Mean Corpuscular Volume 88.9 fL (83.0-100.0); Mean Platelet Volume 12.2 fL (9.4-12.4); Monocytes # 0.3 K/mcL (0.0-1.3); Monocytes % 4.6 %; Platelet Count 169 K/mcL (140-400); Red Blood Count 4.97 M/mcL (3.82-4.97); Red Cell Distribution Width 13.2 % (11.5-14.5); Segmented Neutrophils % 76.3 %
[2018-01-30] MEDS: *HR* Heparin 5,000 UNIT/ML VIAL SQ SCH ×3 (05:03→21:19)
[2018-01-30 05:19] LABS: BUN/Creatinine Ratio 30 (6-26); Blood Urea Nitrogen 28 mg/dL (6-20); Calcium 9.6 mg/dL (8.6-10.3); Carbon Dioxide 30 mEq/L (23-29); Chloride 98 mEq/L (98-107); Glucose 171 mg/dL (70-105); Osmolality,Calculated 292 (280-300); Potassium 4.5 mEq/L (3.5-5.1); Sodium 136 mEq/L (136-145); eGFR For Non-African Americans > 60 (> 60)
[2018-01-30] MEDS: Acetaminophen 325 MG TABLET PO PRN ×2 (07:52→21:24)
[2018-01-30] MEDS: Nicotine 21 MG PATCH.TD24 TD SCH (07:53)
[2018-01-30] MEDS: Furosemide 20 MG/2 ML VIAL IVP SCH (07:53)
[2018-01-30] MEDS: Insulin LISPRO 300 UNITS/3 ML VIAL SQ SCH ×3 (08:02→17:13)
--- NOTE | 2018-01-30 10:30 | Internal Med Progress Note ---
Hospitalist Progress Note - Encounter Date of Encounter: 01/30/18 Time of Encounter: 10:29 - Subjective Interval History: Patient was seen and examined at bedside. She is sitting up in a chair at bedside. Patient states she feels better. Does not appear to be in any respiratory distress coughing has improved - Exam Vitals: Temp Pulse Resp BP Pulse Ox 97.7 F 82 16 111/63 96 01/30/18 07:17 01/30/18 07:17 01/30/18 07:30 01/30/18 07:17 01/30/18 08:05 Exam: General: Alert and oriented 4. In mild/moderate distress due to cough and wheezing, shortness of breath. Skin: Normal color, no rash, no lesions. HEENT: EOM, pupils equal, round and reactive. Cardiovascular: RRR, Normal S1 & S2, no rubs, murmurs or gallops. JVD not appreciated due to short neck. Lungs: Lung sounds clear, no wheezes crackles, rales.-Moist nonproductive cough Abdomen: Obese, Soft, non-tender, no rigidity. Extremities: Chronic venous insufficiency skin changes in the lower extremities. Neurological: Normal cognition and motor skills. Rest of the physical exam is non contributory - Assessment and Plan (1) Acute exacerbation of chronic obstructive airways disease Current Visit: Yes Status: Acute Assessment and Plan: Scattered bilateral wheezing. In mild respiratory distress due to cough and wheezing. Plan Increase Solu-Medrol to 60mg/iv every 8 hours Duo-Nebs Q4RT scheduled Continue albuterol nebs when necessary Incentive spirometry ABG Patient educated about importance of smoking cessation. Continue O2 by nasal cannula, titrate for O2 sat duration more than 92%. As patient is on high dose IV steroids will start lispro high dose sliding scale Accu-checks AC/HS Continue furosemide 20 mg IV daily. Started on empiric antibiotic coverage Sputum cultures and Gram stain Urine for Legionella and strep 01/28 Continues to have scattered wheezes bilaterally. Continues to have moist nonproductive cough We will continue with Solu-Medrol 60 mg IV every 8 Continue with DuoNeb's Continue with oxygen titrated to maintain SPO2 greater than 92% Continue with azithromycin We will add Mucinex Check respiratory panel Sputum culture Urine for Legionella and strep-are negative 01/29 Respiratory effort has improved. Lung sounds with faint wheezes bilaterally con tinues to have nonproductive cough Continue with Solu-Medrol Continue with DuoNeb's Continue with oxygen titrated to maintain SPO2 greater than 90% Continue with azithromycin Continue to Mucinex Respiratory panel does show entero/rhino Awaiting sputum culture Urine for Legionella and strep are negative 01/30 Lung sounds much improved today lung sounds are clear respiratory effort improved no cough at this time We will continue with Solu-Medrol and taper Continue with DuoNeb's Into the oxygen maintaining SPO2 greater than 90% Continue with azithromycin Continue Mucinex Respiratory panel showing entero/rhino Awaiting sputum culture Urine Legionella and strep are negative (2) Lower extremity edema Current Visit: Yes Status: Chronic Assessment and Plan: Patient has a history of chronic lymphedema and venous insufficiency. will order Venous duplex of the lower extremity bilaterally. 01/28 History of chronic lymphedema and venous insufficiency Venous duplex of lower extremities ordered -pending results 01/29 History of chronic lymphedema and venous insufficiency-venous duplex of lower extremities pending 01/30 History of chronic lymphedema and venous insufficiency venous duplex-pending (3) Nicotine dependence Current Visit: Yes Status: Chronic Assessment and Plan: Continue nicotine patch. 01/28 Encouraged patient to stop smoking will continue nicotine patch 01/30 Course patient stopped smoking 15 with nicotine patch (4) Obesity hypoventilation syndrome Current Visit: Yes Status: Chronic Assessment and Plan: discussed weight loss 01/28 Encouraged lifestyle changes including weight loss and exercise 01/29 Encouraged lifestyle changes weight loss and exercise 01/30 Encouraged lifestyle changes weight loss and exercise (5) Acute respiratory failure with hypoxia Current Visit: Yes Status: Acute Assessment and Plan: Most likely secondary to COPD exacerbation. Patient still requiring 5 L of oxygen by nasal cannula. Plan of care as above 01/28 Most likely secondary to COPD exacerbation Currently on 2 L nasal cannula See above 01/29 Secondary to COPD exacerbation Continues to require oxygen supplementation See above 01/30 Secondary to COPD exacerbation appears to be improving today we will continue with oxygen (6) Occasional tremors Current Visit: Yes Status: Acute Assessment and Plan: Patient complains of occasional wheezing intentional tremors of the upper and lower extremities. She also reports tremors while she is sleeping. These could be secondary to Possible benign essential tremors Recommended neurology follow-up When wheezing has resolved consider starting the patient on a trial of low dose bb. iron panel 01/28 Patient will follow-up with neurology as outpatient- May trial low-dose beta carolin once wheezing has resolved Iron panel within normal limits 01/29 Patient follow neurology as outpatient August trial low-dose beta carolin once wheezing has resolved Iron panel is within normal limits 01/30 Follow with neurology as outpatient August trial low-dose beta carolin once wheezing has resolved Iron panel normal (7) Hyperglycemia Current Visit: Yes Status: Acute Assessment and Plan: No documented diabetes history. Possible due to her steroids A1c Carb controlled diet Started on lispro sliding scale high-dose. 01/28 Blood glucose continues to be elevated most likely secondary to high-dose steroids A1c is 5.6 Continue with Accu-Cheks before meals at bedtime with sliding scale insulin at high-dose 01/29 Continue to monitor continued Accu-Cheks before meals at bedtime Regular Insulin 01/30 Continue to monitor blood glucose before meals at bedtime with sliding scale- glucose is improving elevated due to steroids DVT Prophylaxis: Continue heparin 5000 units subcutaneous every 8 or DVT prophylaxis - Time Spent with Patient Total time spent is greater than 50% in coordination of care (as documented) at patient's floor/unit and/or counseling patient: Internal Medicine: Result - Labs CBC & Chem 7: 01/30/18 04:40 01/30/18 04:40 Labs: Short CBC 01/30/18 Range/Units 04:40 WBC 6.5 (4.3-11.1) K/mcL Hgb 14.4 (11.5-15.4) g/dL Hct 44.2 (35.3-44.9) % Plt Count 169 (140-400) K/mcL Neutrophils # 5.0 (1.6-8.9) K/mcL BMP 01/30/18 04:40 Sodium 136 Potassium 4.5 Chloride 98 Carbon Dioxide 30 H BUN 28 H Creatinine 0.92 Glucose 171 H Calcium 9.6 - ABG Interpretation ABG results: ABG ABG pH 7.44 pH Units (7.32-7.45) 01/27/18 11:55 ABG pCO2 47 mmHg (35-45) H 01/27/18 11:55 ABG pO2 62 mmHg (85-104) L 01/27/18 11:55 ABG O2 Saturation 92 % (95-98) L 01/27/18 11:55 Consult Discharge Plan - Plan Referrals: Hoff,Eduard C, MD [Primary Care Provider] - (3) Nicotine dependence Qualifiers: Nicotine product type: cigarettes Substance use status: uncomplicated Qualified Code(s): F17.210 - Nicotine dependence, cigarettes, uncomplicated
--- NOTE | 2018-01-30 15:34 | Electrocardiograph Report ---
[address] [place] [address] Test Date: 2018-01-25 Pat Name: Carole Dahl Department: [id number] Room: 3B14 Gender: F Manager Target: : 1960 Requested By: Tirso Valenzuela Order Number: [id number] Reading MD: Chriss Troncoso Measurements Intervals [place] Rate: 100 P: 85 IN: 206 QRS: 56 QRSD: 133 T: 33 QT: 350 QTc: 452 Interpretive Statements Sinus tachycardia Right bundle branch block Electronically Signed On 01-30-2018 15:33:19 EDT by Chriss Troncoso
[2018-01-30] MEDS: methylPREDNISolone 125 MG/2 ML VIAL IVP SCH (17:13)
[2018-01-30] MEDS: Melatonin 3 MG TABLET PO PRN (21:19)
[2018-01-31] MEDS: Ipratropium/Albuterol Neb 3 ML IH SCH ×7 (00:22→22:48)
[2018-01-31] MEDS: Azithromycin 500 MG in D5% in Water 250 ML IVPB SCH (02:25)
[2018-01-31 04:13] LABS: Basophils % 0.1 %; Hematocrit 40.2 % (35.3-44.9); Hemoglobin 13.5 g/dL (11.5-15.4); Immature Granulocytes % 0.9 % (0-4); Lymphocytes # 1.3 K/mcL (0.6-4.6); Lymphocytes % 18.3 %; Mean Corpuscular HGB Conc 33.6 g/dL (31.6-35.5); Mean Corpuscular Volume 89.3 fL (83.0-100.0); Mean Platelet Volume 12.6 fL (9.4-12.4); Monocytes # 0.5 K/mcL (0.0-1.3); Monocytes % 7.4 %; Platelet Count 166 K/mcL (140-400); Red Cell Distribution Width 13.2 % (11.5-14.5); Segmented Neutrophils % 73.3 %
[2018-01-31 04:36] LABS: BUN/Creatinine Ratio 33 (6-26); Blood Urea Nitrogen 36 mg/dL (6-20); Calcium 9.1 mg/dL (8.6-10.3); Carbon Dioxide 32 mEq/L (23-29); Chloride 99 mEq/L (98-107); Glucose 224 mg/dL (70-105); Osmolality,Calculated 297 (280-300); Potassium 4.5 mEq/L (3.5-5.1); Sodium 136 mEq/L (136-145); eGFR For Non-African Americans 52 (> 60)
[2018-01-31] MEDS: *HR* Heparin 5,000 UNIT/ML VIAL SQ SCH ×3 (06:05→20:38)
[2018-01-31] MEDS: methylPREDNISolone 125 MG/2 ML VIAL IVP SCH ×2 (06:05→17:37)
[2018-01-31] MEDS: Acetaminophen 325 MG TABLET PO PRN ×3 (06:09→20:38)
[2018-01-31] MEDS: Insulin LISPRO 300 UNITS/3 ML VIAL SQ SCH ×3 (08:41→17:38)
[2018-01-31] MEDS: Furosemide 20 MG/2 ML VIAL IVP SCH (08:42)
[2018-01-31] MEDS: Nicotine 21 MG PATCH.TD24 TD SCH (08:42)
--- NOTE | 2018-01-31 18:14 | Internal Med Progress Note ---
Hospitalist Progress Note - Encounter Date of Encounter: 01/31/18 Time of Encounter: 11:00 - Subjective Interval History: Patient was seen and examined at bedside. She is sitting up in a chair at bedside. Does not appear to be in any respiratory distress. Her coughing has improved however she still. There is something in her chest. We will add Mucom yst to treatment plan. Discussed with patient who verbalized understanding and acceptance of plan. - Exam Vitals: Temp Pulse Resp BP Pulse Ox 98.0 F 93 18 117/72 95 01/31/18 15:32 01/31/18 15:32 01/31/18 15:32 01/31/18 15:32 01/31/18 15:32 Exam: General: Alert and oriented 4. In mild/moderate distress due to cough and wheezing, shortness of breath. Skin: Normal color, no rash, no lesions. HEENT: EOM, pupils equal, round and reactive. Cardiovascular: RRR, Normal S1 & S2, no rubs, murmurs or gallops. JVD not appreciated due to short neck. Lungs: Lung sounds clear, no wheezes crackles, rales.-Moist nonproductive cough Abdomen: Obese, Soft, non-tender, no rigidity. Extremities: Chronic venous insufficiency skin changes in the lower extremities. Neurological: Normal cognition and motor skills. Rest of the physical exam is non contributory - Assessment and Plan (1) Acute exacerbation of chronic obstructive airways disease Current Visit: Yes Status: Acute Assessment and Plan: Scattered bilateral wheezing. In mild respiratory distress due to cough and wheezing. Plan Increase Solu-Medrol to 60mg/iv every 8 hours Duo-Nebs Q4RT scheduled Continue albuterol nebs when necessary Incentive spirometry ABG Patient educated about importance of smoking cessation. Continue O2 by nasal cannula, titrate for O2 sat duration more than 92%. As patient is on high dose IV steroids will start lispro high dose sliding scale Accu-checks AC/HS Continue furosemide 20 mg IV daily. Started on empiric antibiotic coverage Sputum cultures and Gram stain Urine for Legionella and strep 01/28 Continues to have scattered wheezes bilaterally. Continues to have moist nonproductive cough We will continue with Solu-Medrol 60 mg IV every 8 Continue with DuoNeb's Continue with oxygen titrated to maintain SPO2 greater than 92% Continue with azithromycin We will add Mucinex Check respiratory panel Sputum culture Urine for Legionella and strep-are negative 01/29 Respiratory effort has improved. Lung sounds with faint wheezes bilaterally continues to have nonproductive cough Continue with Solu-Medrol Continue with DuoNeb's Continue with oxygen titrated to maintain SPO2 greater than 90% Continue with azithromycin Continue to Mucinex Respiratory panel does show entero/rhino Awaiting sputum culture Urine for Legionella and strep are negative 01/30 Lung sounds much improved today lung sounds are clear respiratory effort improved no cough at this time We will continue with Solu-Medrol and taper Continue with DuoNeb's Into the oxygen maintaining SPO2 greater than 90% Continue with azithromycin Continue Mucinex Respiratory panel showing entero/rhino Awaiting sputum culture Urine Legionella and strep are negative 01/31 lung sounds continue to be clear she does have a cough. States she feels E she is to cough something up will add Mucomyst and see if this will improve Continue with Solu-Medrol and taper Continue with azithromycin day 5 continue for 7 days Continue as above (2) Lower extremity edema Current Visit: Yes Status: Chronic Assessment and Plan: Patient has a history of chronic lymphedema and venous insufficiency. will order Venous duplex of the lower extremity bilaterally. 01/28 History of chronic lymphedema and venous insufficiency Venous duplex of lower extremities ordered -pending results 01/29 History of chronic lymphedema and venous insufficiency-venous duplex of lower extremities pending 01/30 History of chronic lymphedema and venous insufficiency venous duplex-pending 01/31 Chronic lymphedema and venous insufficiency (3) Nicotine dependence Current Visit: Yes Status: Chronic Assessment and Plan: Continue nicotine patch. 01/28 Encouraged patient to stop smoking will continue nicotine patch 01/30 Course patient stopped smoking 15 with nicotine patch 01/31 Encouraged patient to stop smoking continue with nicotine patch (4) Obesity hypoventilation syndrome Current Visit: Yes Status: Chronic Assessment and Plan: discussed weight loss 01/28 Encouraged lifestyle changes including weight loss and exercise 01/29 Encouraged lifestyle changes weight loss and exercise 01/30 Encouraged lifestyle changes weight loss and exercise 01/31 Encouraged lifestyle changes weight loss and exercise (5) Acute respiratory failure with hypoxia Current Visit: Yes Status: Acute Assessment and Plan: Most likely secondary to COPD exacerbation. Patient still requiring 5 L of oxygen by nasal cannula. Plan of care as above 01/28 Most likely secondary to COPD exacerbation Currently on 2 L nasal cannula See above 01/29 Secondary to COPD exacerbation Continues to require oxygen supplementation See above 01/30 Secondary to COPD exacerbation appears to be improving today we will continue with oxygen 01/31 Secondary to COPD exacerbation improving respiratory state continue with oxygen and titrate (6) Occasional tremors Current Visit: Yes Status: Acute Assessment and Plan: Patient complains of occasional wheezing intentional tremors of the upper and lower extremities. She also reports tremors while she is sleeping. These could be secondary to Possible benign essential tremors Recommended neurology follow-up When wheezing has resolved consider starting the patient on a trial of low dose bb. iron panel 01/28 Patient will follow-up with neurology as outpatient- May trial low-dose beta carolin once wheezing has resolved Iron panel within normal limits 01/29 Patient follow neurology as outpatient May trial low-dose beta carolin once wheezing has resolved Iron panel is within normal limits 01/30 Follow with neurology as outpatient May trial low-dose beta carolin once wheezing has resolved Iron panel normal 01/31 As above (7) Hyperglycemia Current Visit: Yes Status: Acute Assessment and Plan: No documented diabetes history. Possible due to her steroids A1c Carb controlled diet Started on lispro sliding scale high-dose. 01/28 Blood glucose continues to be elevated most likely secondary to high-dose steroids A1c is 5.6 Continue with Accu-Cheks before meals at bedtime with sliding scale insulin at high-dose 01/29 Continue to monitor continued Accu-Cheks before meals at bedtime Regular Insulin 01/30 Continue to monitor blood glucose before meals at bedtime with sliding scale- glucose is improving elevated due to steroids 01/31 Continue to monitor most likely secondary to steroid use we are de-escalating steroids adjust insulin as needed DVT Prophylaxis: Continue heparin 5000 units subcutaneous every 8 or DVT prophylaxis - Time Spent with Patient Total time spent is greater than 50% in coordination of care (as documented) at patient's floor/unit and/or counseling patient: Internal Medicine: Result - Labs CBC & Chem 7: 01/31/18 02:46 01/31/18 02:46 Labs: Short CBC 01/31/18 Range/Units 02:46 WBC 6.9 (4.3-11.1) K/mcL Hgb 13.5 (11.5-15.4) g/dL Hct 40.2 (35.3-44.9) % Plt Count 166 (140-400) K/mcL Neutrophils # 5.0 (1.6-8.9) K/mcL BMP 01/31/18 02:46 Sodium 136 Potassium 4.5 Chloride 99 Carbon Dioxide 32 H BUN 36 H Creatinine 1.08 Glucose 224 H Calcium 9.1 - ABG Interpretation ABG results: ABG ABG pH 7.44 pH Units (7.32-7.45) 01/27/18 11:55 ABG pCO2 47 mmHg (35-45) H 01/27/18 11:55 ABG pO2 62 mmHg (85-104) L 01/27/18 11:55 ABG O2 Saturation 92 % (95-98) L 01/27/18 11:55 Consult Discharge Plan - Plan Referrals: Eduard Hoff MD [Primary Care Provider] - (3) Nicotine dependence Qualifiers: Nicotine product type: cigarettes Substance use status: uncomplicated Qualified Code(s): F17.210 - Nicotine dependence, cigarettes, uncomplicated
[2018-01-31] MEDS: Acetylcysteine 10% 2 ML INHSOL IH SCH ×2 (19:54→22:48)
[2018-01-31] MEDS: Melatonin 3 MG TABLET PO PRN (20:38)
[2018-02-01] MEDS: Azithromycin 500 MG in D5% in Water 250 ML IVPB SCH (03:07)
[2018-02-01] MEDS: Ipratropium/Albuterol Neb 3 ML IH SCH ×6 (03:46→23:28)
[2018-02-01 03:55] LABS: Basophils % 0.1 %; Eosinophils % 0.1 %; Hematocrit 43.8 % (35.3-44.9); Hemoglobin 14.4 g/dL (11.5-15.4); Immature Granulocytes % 1.3 % (0-4); Lymphocytes # 1.4 K/mcL (0.6-4.6); Lymphocytes % 18.2 %; Mean Corpuscular HGB Conc 32.9 g/dL (31.6-35.5); Mean Corpuscular Hemoglobin 29.2 pg (28.0-33.3); Mean Corpuscular Volume 88.8 fL (83.0-100.0); Mean Platelet Volume 12.5 fL (9.4-12.4); Monocytes # 0.5 K/mcL (0.0-1.3); Monocytes % 6.2 %; Neutrophils # 5.7 K/mcL (1.6-8.9); Platelet Count 188 K/mcL (140-400); Red Blood Count 4.93 M/mcL (3.82-4.97); Red Cell Distribution Width 13.2 % (11.5-14.5); Segmented Neutrophils % 74.1 %
[2018-02-01 04:15] LABS: BUN/Creatinine Ratio 40 (6-26); Blood Urea Nitrogen 34 mg/dL (6-20); Calcium 9.2 mg/dL (8.6-10.3); Carbon Dioxide 30 mEq/L (23-29); Chloride 97 mEq/L (98-107); Glucose 224 mg/dL (70-105); Osmolality,Calculated 293 (280-300); Potassium 4.2 mEq/L (3.5-5.1); Sodium 134 mEq/L (136-145); eGFR For Non-African Americans > 60 (> 60)
[2018-02-01] MEDS: *HR* Heparin 5,000 UNIT/ML VIAL SQ SCH ×3 (05:36→21:14)
[2018-02-01] MEDS ORDERED: MethylPREDNISolone 40 MG/ML VIAL IVP SCH (06:00)
[2018-02-01] MEDS: Acetaminophen 325 MG TABLET PO PRN (07:01)
[2018-02-01] MEDS: Acetylcysteine 10% 2 ML INHSOL IH SCH ×3 (07:27→23:28)
[2018-02-01] MEDS: Nicotine 21 MG PATCH.TD24 TD SCH (08:24)
[2018-02-01] MEDS: Furosemide 20 MG TABLET PO SCH (08:24)
[2018-02-01] MEDS: Insulin LISPRO 300 UNITS/3 ML VIAL SQ SCH ×3 (08:25→17:24)
--- NOTE | 2018-02-01 08:32 | Internal Med Progress Note ---
Hospitalist Progress Note - Encounter Date of Encounter: 02/01/18 Time of Encounter: 08:30 - Subjective Interval History: Patient was seen and examined at bedside. Patient states she feels much better today. She has been able to cough up some secretions. Encouraged patient to use Incentive spirometry - Exam Vitals: Temp Pulse Resp BP Pulse Ox 97.8 F 78 16 121/73 94 02/01/18 07:50 02/01/18 07:50 02/01/18 07:50 02/01/18 07:50 02/01/18 07:50 Exam: General: Alert and oriented 4. In mild/moderate distress due to cough and wheezing, shortness of breath. Skin: Normal color, no rash, no lesions. HEENT: EOM, pupils equal, round and reactive. Cardiovascular: RRR, Normal S1 & S2, no rubs, murmurs or gallops. JVD not appreciated due to short neck. Lungs: Lung sounds clear, no wheezes crackles, rales.- nonproductive cough Abdomen: Obese, Soft, non-tender, no rigidity. Extremities: Chronic venous insufficiency skin changes in the lower extremities. Neurological: Normal cognition and motor skills. Rest of the physical exam is non contributory - Assessment and Plan (1) Acute exacerbation of chronic obstructive airways disease Current Visit: Yes Status: Acute Assessment and Plan: Scattered bilateral wheezing. In mild respiratory distress due to cough and wheezing. Plan Increase Solu-Medrol to 60mg/iv every 8 hours Duo-Nebs Q4RT scheduled Continue albuterol nebs when necessary Incentive spirometry ABG Patient educated about importance of smoking cessation. Continue O2 by nasal cannula, titrate for O2 sat duration more than 92%. As patient is on high dose IV steroids will start lispro high dose sliding scale Accu-checks AC/HS Continue furosemide 20 mg IV daily. Started on empiric antibiotic coverage Sputum cultures and Gram stain Urine for Legionella and strep 01/28 Continues to have scattered wheezes bilaterally. Continues to have moist nonproductive cough We will continue with Solu-Medrol 60 mg IV every 8 Continue with DuoNeb's Continue with oxygen titrated to maintain SPO2 greater than 92% Continue with azithromycin We will add Mucinex Check respiratory panel Sputum culture Urine for Legionella and strep-are negative 01/29 Respiratory effort has improved. Lung sounds with faint wheezes bilaterally continues to have nonproductive cough Continue with Solu-Medrol Continue with DuoNeb's Continue with oxygen titrated to maintain SPO2 greater than 90% Continue with azithromycin Continue to Mucinex Respiratory panel does show entero/rhino Awaiting sputum culture Urine for Legionella and strep are negative 01/30 Lung sounds much improved today lung sounds are clear respiratory effort improved no cough at this time We will continue with Solu-Medrol and taper Continue with DuoNeb's Into the oxygen maintaining SPO2 greater than 90% Continue with azithromycin Continue Mucinex Respiratory panel showing entero/rhino Awaiting sputum culture Urine Legionella and strep are negative 01/31 lung sounds continue to be clear she does have a cough. States she feels E she is to cough something up will add Mucomyst and see if this will improve Continue with Solu-Medrol and taper Continue with azithromycin day 5 continue for 7 days Continue as above 02/01 lung sounds are clear with occasional wheeze- has nonproductive cough - she states she feels she is able to move more air since starting mucomyst unable to expectorate any sputum. Encouraged IS use- she is able to pull 1000ml will switch to oral prednisone and see how she tolerates 6 min walk (2) Lower extremity edema Current Visit: Yes Status: Chronic Assessment and Plan: Patient has a history of chronic lymphedema and venous insufficiency. will order Venous duplex of the lower extremity bilaterally. 01/28 History of chronic lymphedema and venous insufficiency Venous duplex of lower extremities ordered -pending results 01/29 History of chronic lymphedema and venous insufficiency-venous duplex of lower extremities pending 01/30 History of chronic lymphedema and venous insufficiency venous duplex-pending 01/31 Chronic lymphedema and venous insufficiency 02/01 Chronic lymphedema and venous insufficiency venous Doppler was ordered and states it was completed however and able to locate results will attempt to contact ultrasound today (3) Nicotine dependence Current Visit: Yes Status: Chronic Assessment and Plan: Continue nicotine patch. 01/28 Encouraged patient to stop smoking will continue nicotine patch 01/30 Course patient stopped smoking 15 with nicotine patch 01/31 Encouraged patient to stop smoking continue with nicotine patch (4) Obesity hypoventilation syndrome Current Visit: Yes Status: Chronic Assessment and Plan: discussed weight loss 01/28 Encouraged lifestyle changes including weight loss and exercise 01/29 Encouraged lifestyle changes weight loss and exercise 01/30 Encouraged lifestyle changes weight loss and exercise 01/31 Encouraged lifestyle changes weight loss and exercise (5) Acute respiratory failure with hypoxia Current Visit: Yes Status: Acute Assessment and Plan: Most likely secondary to COPD exacerbation. Patient still requiring 5 L of oxygen by nasal cannula. Plan of care as above 01/28 Most likely secondary to COPD exacerbation Currently on 2 L nasal cannula See above 01/29 Secondary to COPD exacerbation Continues to require oxygen supplementation See above 01/30 Secondary to COPD exacerbation appears to be improving today we will continue with oxygen 01/31 Secondary to COPD exacerbation improving respiratory state continue with oxygen and titrate 02/01 secondary to COPD exacerbation improving respiratory state and oxygen encourage patient to ambulate (6) Occasional tremors Current Visit: Yes Status: Acute Assessment and Plan: Patient complains of occasional wheezing intentional tremors of the upper and lower extremities. She also reports tremors while she is sleeping. These could be secondary to Possible benign essential tremors Recommended neurology follow-up When wheezing has resolved consider starting the patient on a trial of low dose bb. iron panel 01/28 Patient will follow-up with neurology as outpatient- May trial low-dose beta carolin once wheezing has resolved Iron panel within normal limits 01/29 Patient follow neurology as outpatient May trial low-dose beta carolin once wheezing has resolved Iron panel is within normal limits 01/30 Follow with neurology as outpatient May trial low-dose beta carolin once wheezing has resolved Iron panel normal 01/31 As above (7) Hyperglycemia Current Visit: Yes Status: Acute Assessment and Plan: No documented diabetes history. Possible due to her steroids A1c Carb controlled diet Started on lispro sliding scale high-dose. 01/28 Blood glucose continues to be elevated most likely secondary to high-dose steroids A1c is 5.6 Continue with Accu-Cheks before meals at bedtime with sliding scale insulin at high-dose 01/29 Continue to monitor continued Accu-Cheks before meals at bedtime Regular Insulin 01/30 Continue to monitor blood glucose before meals at bedtime with sliding scale- glucose is improving elevated due to steroids 01/31 Continue to monitor most likely secondary to steroid use we are de-escalating steroids adjust insulin as needed 02/01 continue secondary to steroid use continue de-escalate steroids and adjust insulin as needed DVT Prophylaxis: Continue heparin 5000 units subcutaneous every 8 or DVT prophylaxis - Time Spent with Patient Total time spent is greater than 50% in coordination of care (as documented) at patient's floor/unit and/or counseling patient: Internal Medicine: Result - Labs CBC & Chem 7: 02/01/18 02:24 02/01/18 02:24 Labs: Short CBC 02/01/18 Range/Units 02:24 WBC 7.7 (4.3-11.1) K/mcL Hgb 14.4 (11.5-15.4) g/dL Hct 43.8 (35.3-44.9) % Plt Count 188 (140-400) K/mcL Neutrophils # 5.7 (1.6-8.9) K/mcL BMP 02/01/18 02:24 Sodium 134 L Potassium 4.2 Chloride 97 L Carbon Dioxide 30 H BUN 34 H Creatinine 0.86 Glucose 224 H Calcium 9.2 - ABG Interpretation ABG results: ABG ABG pH 7.44 pH Units (7.32-7.45) 01/27/18 11:55 ABG pCO2 47 mmHg (35-45) H 01/27/18 11:55 ABG pO2 62 mmHg (85-104) L 01/27/18 11:55 ABG O2 Saturation 92 % (95-98) L 01/27/18 11:55 Consult Discharge Plan - Plan Referrals: Eduard Hoff MD [Primary Care Provider] - (3) Nicotine dependence Qualifiers: Nicotine product type: cigarettes Substance use status: uncomplicated Qualified Code(s): F17.210 - Nicotine dependence, cigarettes, uncomplicated
[2018-02-02] MEDS: Ipratropium/Albuterol Neb 3 ML IH SCH ×4 (03:32→15:27)
[2018-02-02] MEDS: *HR* Heparin 5,000 UNIT/ML VIAL SQ SCH (05:07)
[2018-02-02] MEDS: Insulin LISPRO 300 UNITS/3 ML VIAL SQ SCH ×2 (07:29→11:56)
[2018-02-02] MEDS: Acetylcysteine 10% 2 ML INHSOL IH SCH ×2 (07:31→15:28)
[2018-02-02 08:07] LABS: Basophils % 0.2 %; Eosinophils % 0.4 %; Hematocrit 43.6 % (35.3-44.9); Lymphocytes # 4.5 K/mcL (0.6-4.6); Lymphocytes % 44.5 %; Mean Corpuscular HGB Conc 32.1 g/dL (31.6-35.5); Mean Corpuscular Volume 90.5 fL (83.0-100.0); Monocytes # 0.8 K/mcL (0.0-1.3); Monocytes % 7.6 %; Neutrophils # 4.7 K/mcL (1.6-8.9); Platelet Count 171 K/mcL (140-400); Red Blood Count 4.82 M/mcL (3.82-4.97); Red Cell Distribution Width 13.3 % (11.5-14.5); Segmented Neutrophils % 46.3 %
[2018-02-02 08:19] LABS: Calcium 8.9 mg/dL (8.6-10.3)
[2018-02-02] MEDS ORDERED: Azithromycin 250 MG TABLET PO SCH (09:00)
[2018-02-02] MEDS ORDERED: predniSONE 20 MG TABLET PO SCH (09:00)
[2018-02-02] MEDS: Furosemide 20 MG TABLET PO SCH (09:14)
[2018-02-02] MEDS: Nicotine 21 MG PATCH.TD24 TD SCH (09:15)
[2018-02-02 11:53] VITALS: BP 135/66
--- NOTE | 2018-02-02 12:34 | Discharge Summary ---
- NOTES TO OUTPATIENT PROVIDER Notes to Outpatient Provider: steroid taper. inhaler. oxygen as needed. pulmonary follow up Date of Encounter: 02/02/18 Time of Encounter: 12:30 - Discharge Diagnosis (1) Acute exacerbation of chronic obstructive airways disease Priority: Primary Status: Acute (2) Lower extremity edema Priority: Secondary Status: Chronic (3) Nicotine dependence Priority: Secondary Status: Chronic Qualifiers: Nicotine product type: cigarettes Substance use status: uncomplicated Qualified Code(s): F17.210 - Nicotine dependence, cigarettes, uncomplicated (4) Obesity hypoventilation syndrome Priority: Secondary Status: Chronic (5) Acute respiratory failure with hypoxia Priority: Secondary Status: Acute (6) Occasional tremors Priority: Secondary Status: Acute (7) Hyperglycemia Priority: Secondary Status: Acute Hospital course: Ms. Dahl is a 57 year old female past medical history COPD fibromyalgia GERD venous stasis TIA morbid obesity. Patient presented to [facility] ED with 2 day history of difficulty breathing. She does not have any oxygen at home she has had increased cough rattling and wheezing no sputum production no fevers no chills. She did check her oxygen at home and SPO2 was 80-93%. She normally is 94-98%. She is a current 2 pack a day smoker and has smoked since she was 8 years old. 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 She has not seen her primary physician in approximately a year. In the emergency department lab work was obtained and was unremarkable chest x-ray did not show any acute findings she was given breathing treatments and steroids however she continued to be hypoxic on exertion. She was admitted for further workup and evaluation. During admission patient continued to experience wheezing cough and hypoxia. She was on high-dose steroids IV which were weaned down. She was also given bronchodilators around the clock and worked with PT and OT. Respiratory panel was completed which did reveal anterior /rhinovirus-she does have chronic lower extremity swelling venous duplex was completed to rule out any possible DVT which was negative echo was completed which did show EF of 60-65%-eventually her respiratory status improved and she was able to wean off oxygen however patient requesting home oxygen she feels that she may need an during exacerbation , she is self-pay. Social service consultation and is attempting to obtain oxygen concentrator for patient. I advised the patient to follow up with her PCP she has had appointment on February 05. Highly encouraged the patient to stop smoking and offered her nicotine patch which she did accept. Advised patient to follow-up with pulmonology to have formal workup and the plan was made prior to discharge. Currently patient is hemodynamically stable, occasional faint scattered wheezes oxygen saturations stable, she is ready for discharge - Time Spent with Patient Total time spent providing and/or coordinating discharge services: - Discharge Medications Prescriptions: Albuterol Neb [Proventil Neb] 2.5 mg IH Q4HR PRN #30 inhsol PRN Reason: Wheezing Albuterol Sulfate [Proair Hfa] 2 puff IH TID PRN #1 hfa.[email or web address] PRN Reason: Shortness Of Breath GuaiFENesin ER [Mucinex] 600 mg PO BID #60 tbbp.12hr Nicotine Patch [Nicoderm] 21 mg TD DAILY #30 patch.[id number] predniSONE [PredniSONE] 10 mg PO DAILY #22 tablet Home Medications: Albuterol Neb [Proventil Neb] 2.5 mg IH Q4HR PRN #30 inhsol 02/02/18 [Rx] Albuterol Sulfate [Proair Hfa] 2 puff IH TID PRN #1 hfa.[email or web address] 02/02/18 [Rx] GuaiFENesin ER [Mucinex] 600 mg PO BID #60 tbbp.12hr 02/02/18 [Rx] Nicotine Patch [Nicoderm] 21 mg TD DAILY #30 patch.[id number] 02/02/18 [Rx] predniSONE [PredniSONE] 10 mg PO DAILY #22 tablet 02/02/18 [Rx] Allergies/Adverse Reactions: Allergy/AdvReac Type Severity Reaction Status Date / Time aspirin AdvReac Vomiting Verified 01/26/18 10:02 Sulfa (Sulfonamide AdvReac Vomiting Verified 01/26/18 10:02 Antibiotics) Date of admission: 01/29/18 12:08 Primary care physician: Eduard Hoff MD Consults: 01/26/18 01:08 Consult to Nurse Navigator [CONS] Routine Comment: 01/26/18 15:14 Consult to Occupational Therapy [CONS] Routine Comment: Evaluate, develop and implement POC Reason for Consult: assess functional capacity Does patient have active BEDREST order?: No Is patient medically & hemodynamically stable?: Yes Patient assessed for mobility or mobilized this visit?: Yes Consult to Physical Therapy [CONS] Routine Comment: Evaluate, develop and implement POC Reason for Consult: assess functional capacity Does patient have active BEDREST order?: No Is patient medically & hemodynamically stable?: Yes Patient assessed for mobility or mobilized this visit?: Yes Consult to Welder Apprentice Combination [CONS] Routine Reason for SW Consult: d/c planning Discharging clinician: Miranda Huynh Anticipated date of discharge: 02/02/18 - Constitutional Vitals: Temp Pulse Resp BP Pulse Ox 98.8 F 84 16 135/66 92 02/02/18 11:51 02/02/18 11:51 02/02/18 11:51 02/02/18 11:51 02/02/18 11:51 General appearance: Present: cooperative, morbidly obese, pleasant, no acute distress, answers questions appropriately Exam: General: Alert and oriented 4. In mild/moderate distress due to cough and wheezing, shortness of breath. Skin: Normal color, no rash, no lesions. HEENT: EOM, pupils equal, round and reactive. Cardiovascular: RRR, Normal S1 & S2, no rubs, murmurs or gallops. JVD not appreciated due to short neck. Lungs: Lung sounds clear, occasional wheezes crackles, rales.- nonproductive cough Abdomen: Obese, Soft, non-tender, no rigidity. Extremities: Chronic venous insufficiency skin changes in the lower extremities. Neurological: Normal cognition and motor skills. Rest of the physical exam is non contributory - Patient Status Disposition: Home, Self-Care Condition: Fair Functional capacity at discharge: independent ambulation Overall status at discharge: patient is back to baseline - Discharge Instructions Follow Up With: Jarvis Law MD [Partnered Physician] - (Your appointment has been requested. Our offices will call you with an appointment time and date. ) Eduard Hoff MD [Primary Care Provider] - 02/05/18 2:30 pm - Diet and Activity Activity: increase activity as tolerated, wear oxygen at all times Diet: advance to your usual diet
== END 2018-02-02 17:44 | disposition home or self-care (01) | DRG 190 ==
LOC: 3BNU 16:19 → EMEROOARM 16:19 → 3BNU 20:11
PROVIDERS: ADMIT Family Medicine; ATTEND Family Medicine

== ENCOUNTER 2018-02-19 19:24 | Inpatient (IN) ==
[2018-02-19] MEDS ORDERED: 0.9 % Sodium Chloride 1,000 ML IVC ONE (20:22)
--- NOTE | 2018-02-19 20:31 | Emergency Department Note ---
Disposition Clinical Impression: Lower extremity edema Cellulitis Qualifiers: Site of cellulitis: extremity Site of cellulitis of extremity: lower extremity Laterality: unspecified laterality Qualified Code(s): L03.119 - Cellulitis of unspecified part of limb Disposition: Admitted As Inpatient Condition: Fair Time of Disposition: 23:15 General Adult HPI - General Chief complaint: ED Extremity Problem,Nontraumatic Stated complaint: Cellulitis both legs Time Seen by Provider: 02/19/18 19:39 Source: patient Mode of arrival: wheelchair Limitations: no limitations Nursing Notes Reviewed: Yes Vital Signs Reviewed: Yes - History of Present Illness HPI Narrative: Patient is a 57-year-old female presenting for one week history of progressively worsening cellulitis. Patient states that approximately one week ago she woke up to find that her feet and ankles were "fire engine red". Patient states that she has had one prior episode of this which resulted in cellulitis which was treated by Augmentin by Dr. Hoff. Patient states that the cellulitis continued to spread over the next several days and that she saw Dr. Hoff and Friday of this week and once again put on Augmentin for the treatment of cellulitis. Patient states that the cellulitis continued spreading up her calf and seaman into her knee and is now 2-3 inches above the knee. Ruddy hernandez states that both legs bilaterally experience a numbness and tingling sensation which is consistent with chronic neuropathy but also states that her legs are exquisitely tender to palpation. Patient admits to past medical history of lymphedema with chronic venous insufficiency, COPD, and pulmonary hypertension. Patient denies any past medical history of congestive heart failure. -Patient admits to recurrent headaches, vision change which she describes as progressively worsening vision throughout the day. Patient admits to sore throat, chest pain on the left side of her chest which she says is "pinching" in nature and worse with inspiration, she admits to shortness of breath, mild he moptysis, cough which has been productive of greenish colored sputum, admits to mild nausea, and admits to bouts of diarrhea which she feels have been exacerbated by the Augmentin antibiotic. Patient denies tinnitus, abdominal pain, vomiting, and blood in her urine or stool. Onset (ago): week(s) Location: head, chest, abdomen, lower extremity Radiation: extremity, proximal Pain Severity: moderate, similar to prior episodes Pain Scale: 6 Quality: other (Patient describes numbness and tingling bilateral lower extremities.) Consistency: constant, Worsening Associated symptoms: Reports: chest pain, cough, fever/chills, headaches, nausea/vomiting, shortness of breath - Related Data Home Medications Medication Instructions Recorded Confirmed Amoxicillin/Clavulanate [Augmentin] 875 mg PO BIDWM 02/19/18 02/19/18 Mometasone Furoate [Asmanex] 1 puff IH DAILY 02/19/18 02/19/18 RX: Albuterol Neb [Proventil Neb] 2.5 mg IH Q6HR PRN 02/19/18 02/19/18 RX: Furosemide [Lasix] 20 mg PO DAILY 02/19/18 02/19/18 RX: Oxygen 2 l IH AD 02/19/18 02/19/18 Spironolactone 25 mg PO DAILY 02/19/18 02/19/18 Umeclidinium Brm/Vilanterol Tr 1 puff IH DAILY 02/19/18 02/19/18 [Anoro Ellipta 62.5-25 Mcg INH] Previous Rx's Medication Instructions Recorded RX: Albuterol Sulfate [Proair Hfa] 2 puff IH TID PRN #1 hfa.aer.ad 02/02/18 RX: GuaiFENesin ER [Mucinex] 600 mg PO BID #60 tbbp.12hr 02/02/18 RX: Nicotine Patch [Nicoderm] 21 mg TD DAILY #30 patch.td24 02/02/18 Allergies Allergy/AdvReac Type Severity Reaction Status Date / Time aspirin AdvReac Vomiting Verified 02/19/18 22:33 Sulfa (Sulfonamide AdvReac Vomiting Verified 02/19/18 22:33 Antibiotics) All systems ED: reviewed and negative except as stated. Review of Systems: As Per HPI Constitutional: Reports: chills. Denies: fever Eyes: Reports: vision change ENT ED: Reports: throat pain. Denies: dysphagia Cardiovascular: Reports: chest pain Respiratory: Reports: dyspnea, hemoptysis Gastrointestinal: Reports: nausea, diarrhea. Denies: abdominal pain, vomiting, hematemesis, hematochezia Genitourinary: Denies: hematuria Musculoskeletal: Reports: back pain, neck pain Neurological: Reports: headache, numbness, paresthesias. Denies: weakness Past Medical History - Past Medical History Medical history: Reports: cancer, COPD, fibromyalgia, GERD, glaucoma, TIA, venous stasis, other Surgical history: Reports: cholecystectomy, hysterectomy, orthopedic, other Psychiatric history: Reports: anxiety, depression [employer] history: Reports: no [employer] history - Social History Smoking Status: Current every day smoker Smokeless Tobacco Status: No Alcohol use: Reports: occasionally Drug use: Reports: none Physical Exam - General Limitations: no limitations General appearance: alert, in no apparent distress - Head Head exam: atraumatic, normocephalic, normal inspection - Eye Eye exam: Present: normal appearance, PERRL, EOMI, conjunctival injection. Absent: scleral icterus - ENT ENT exam: normal exam - Neck Neck exam: Present: trachea midline. Absent: lymphadenopathy - Chest Chest inspection: Present: normal inspection, symmetric chest wall rise - Respiratory Respiratory exam: Absent: respiratory distress, wheezes, stridor, accessory muscle use, prolonged expiratory phase - Expanded Respiratory Exam Location: decreased breath sounds: Left - Cardiovascular Cardiovascular exam: Present: regular rate, normal rhythm, normal heart sounds, +S1, +S2. Absent: +S3, +S4 - Abdominal Exam Abdominal exam: Present: soft, Non-Tender, normal bowel sounds. Absent: distention, guarding, rebound, rigidity - Expanded Lower Extremity Exam Upper leg exam: Present: tenderness, swelling, erythema Lower leg exam: Present: tenderness, swelling, erythema Foot/toe exam: Present: tenderness, swelling, erythema - Neurological Exam Neurological exam: Present: alert, oriented X3 - Psychiatric Psychiatric exam: Present: normal affect, normal mood - Skin Skin exam: Present: warm, dry, intact, normal color. Absent: cyanosis, diaphoresis Course Course Narrative: Patient history, review of systems, and physical exam is concerning for localized cellulitis versus systemic infectious pathology. Sepsis order set and associated and patient started on 1 L fluid bolus for the evaluation and management of suspected sepsis. Chest x-ray will be performed to evaluate for cardiopulmonary process due to diminished lung sounds auscultated over the left chest. Vital Signs Temperature 97.9 F 02/19/18 19:31 Pulse Rate 99 02/19/18 19:31 Respiratory Rate 18 02/19/18 19:31 Blood Pressure 118/70 02/19/18 19:31 O2 Sat by Pulse Oximetry 98 02/19/18 19:31 Temperature 97.9 F 02/19/18 19:31 Pulse Rate 93 02/19/18 22:42 Respiratory Rate 20 02/19/18 22:51 Blood Pressure 134/52 02/19/18 22:51 O2 Sat by Pulse Oximetry 96 02/19/18 22:42 Oxygen Delivery Oxygen Delivery Room Air Medical Decision Making - Lab Data Result diagrams: 02/19/18 20:40 02/19/18 20:40 Lab Results 02/19/18 02/19/18 02/19/18 Range/Units 20:40 20:40 20:40 WBC 6.2 (4.3-11.1) K/mcL RBC 4.67 (3.82-4.97) M/mcL Hgb 13.7 (11.5-15.4) g/dL Hct 42.5 (35.3-44.9) % MCV 91.0 (83.0-100.0) fL MCH 29.3 (28.0-33.3) pg MCHC 32.2 (31.6-35.5) g/dL RDW 13.1 (11.5-14.5) % Plt Count 146 (140-400) K/mcL MPV 11.7 (9.4-12.4) fL Immature Gran % 0.3 (0-4) % Seg Neutrophils % 54.8 % Lymphocytes % 31.6 % Monocytes % 8.5 % Eosinophils % 4.3 % Basophils % 0.5 % Neutrophils # 3.4 (1.6-8.9) K/mcL Lymphocytes # 2.0 (0.6-4.6) K/mcL Monocytes # 0.5 (0.0-1.3) K/mcL Eosinophils # 0.3 (0.0-0.6) K/mcL Basophils # 0.0 (0.0-0.2) K/mcL PT 12.1 (9.4-12.1) Seconds INR 1.1 APTT 32.3 (26.0-36.0) Seconds VBG pH (7.32-7.42) pH Units VBG pCO2 (41-51) mmHg VBG pO2 (25-50) mmHg VBG HCO3 (21-27) mEq/L Sodium 137 (136-145) mEq/L Potassium 3.9 (3.5-5.1) mEq/L Chloride 100 (98-107) mEq/L Carbon Dioxide 29 (23-29) mEq/L BUN 8 (6-20) mg/dL Creatinine 0.80 (0.60-1.20) mg/dL Est GFR ( Amer) > 60 (> 60) Est GFR (Non-Af Amer) > 60 (> 60) BUN/Creatinine Ratio 10 (6-26) Glucose 108 H (70-105) mg/dL Calculated Osmolality 283 (280-300) Lactic Acid (0.5-2.2) mmol/L Calcium 9.1 (8.6-10.3) mg/dL Phosphorus 2.5 L (2.7-4.5) mg/dL Magnesium 2.0 (1.6-2.6) mg/dL Total Bilirubin 0.6 (0.3-1.0) mg/dL Direct Bilirubin 0.2 (0.0-0.2) mg/dL Indirect Bilirubin 0.4 (0.0-1.2) mg/dL AST 11 L (13-39) Units/L ALT 18 (7-52) Units/L Alkaline Phosphatase 81 (34-104) Units/L Troponin I < 0.03 (< 0.04) ng/mL B-Natriuretic Peptide (Less than 100) pg/mL Serum Total Protein 6.6 (6.4-8.9) g/dL Albumin 3.5 (3.5-5.7) g/dL Globulin 3.1 (2.4-3.5) g/dL Albumin/Globulin Ratio 1.1 (1.1-2.2) 02/19/18 02/19/18 02/19/18 Range/Units 20:40 20:40 21:01 WBC (4.3-11.1) K/mcL RBC (3.82-4.97) M/mcL Hgb (11.5-15.4) g/dL Hct (35.3-44.9) % MCV (83.0-100.0) fL MCH (28.0-33.3) pg MCHC (31.6-35.5) g/dL RDW (11.5-14.5) % Plt Count (140-400) K/mcL MPV (9.4-12.4) fL Immature Gran % (0-4) % Seg Neutrophils % % Lymphocytes % % Monocytes % % Eosinophils % % Basophils % % Neutrophils # (1.6-8.9) K/mcL Lymphocytes # (0.6-4.6) K/mcL Monocytes # (0.0-1.3) K/mcL Eosinophils # (0.0-0.6) K/mcL Basophils # (0.0-0.2) K/mcL PT (9.4-12.1) Seconds INR APTT (26.0-36.0) Seconds VBG pH 7.33 (7.32-7.42) pH Units VBG pCO2 58 H (41-51) mmHg VBG pO2 37 (25-50) mmHg VBG HCO3 31 H (21-27) mEq/L Sodium (136-145) mEq/L Potassium (3.5-5.1) mEq/L Chloride (98-107) mEq/L Carbon Dioxide (23-29) mEq/L BUN (6-20) mg/dL Creatinine (0.60-1.20) mg/dL Est GFR ( Amer) (> 60) Est GFR (Non-Af Amer) (> 60) BUN/Creatinine Ratio (6-26) Glucose (70-105) mg/dL Calculated Osmolality (280-300) Lactic Acid 2.5 H (0.5-2.2) mmol/L Calcium (8.6-10.3) mg/dL Phosphorus (2.7-4.5) mg/dL Magnesium (1.6-2.6) mg/dL Total Bilirubin (0.3-1.0) mg/dL Direct Bilirubin (0.0-0.2) mg/dL Indirect Bilirubin (0.0-1.2) mg/dL AST (13-39) Units/L ALT (7-52) Units/L Alkaline Phosphatase (34-104) Units/L Troponin I (< 0.04) ng/mL B-Natriuretic Peptide 38 (Less than 100) pg/mL Serum Total Protein (6.4-8.9) g/dL Albumin (3.5-5.7) g/dL Globulin (2.4-3.5) g/dL Albumin/Globulin Ratio (1.1-2.2) - EKG Data EKG #1 EKG attestation: Yes I reviewed and interpreted this EKG. EKG results narrative: Patient EKG shows a sinus rhythm with normal rate and axis heart rate is 96 bpm, MI interval 22 ms, care is duration of 114 ms, QT/QTc interval 355/449 ms rectally. There are no significant ST segment elevations or depressions, pathologic Q waves, abnormal T-wave inversions, or any other signs of acute ischemic change. This EKG is generally consistent with prior EKG performed on 01/25/2018. Attestation Statement - Attestation Attestation: I examined this patient and my medical decision-making was reviewed with the Resident Physician, Dr. Albert. I agree with the documented findings, disposition and treatment plan as described except to the extent set forth below. Patient is a 49-year-old white female morbidly obese who presents seem or permit today with bilateral lower extreme be swelling and erythema for the past week that gradually worsened. Patient was seen and evaluated by her primary care physician and started on antibiotics orally but despite this has been having worsening symptoms associated with chills and nausea. Patient was just hospitalized 2 weeks ago for respiratory failure was on antibiotics and hospital but not discharged on antibiotics. Patient denies any chest pain shortness of breath no abdominal pain or vomiting and no other rashes. I agree with patient's physical exam findings as documented. Vital signs are stable. Patient had IV saline well-established will obtain a cultures lab evaluation including lactate patient was started on IV fluids and empiric anabiotic therapy for failed outpatient management. Patient has remained hemolytically stable lactate elevated we are continuing IV fluids and patient will be admitted for bilateral lower extremity cellulitis concern for early sepsis. Case was discussed with hospitalist service who accepted patient for evaluation and management.
[2018-02-19 21:05] LABS: Basophils % 0.5 %; Eosinophils # 0.3 K/mcL (0.0-0.6); Eosinophils % 4.3 %; Hematocrit 42.5 % (35.3-44.9); Hemoglobin 13.7 g/dL (11.5-15.4); Immature Granulocytes % 0.3 % (0-4); Lymphocytes % 31.6 %; Mean Corpuscular HGB Conc 32.2 g/dL (31.6-35.5); Mean Corpuscular Hemoglobin 29.3 pg (28.0-33.3); Mean Platelet Volume 11.7 fL (9.4-12.4); Monocytes # 0.5 K/mcL (0.0-1.3); Monocytes % 8.5 %; Neutrophils # 3.4 K/mcL (1.6-8.9); Platelet Count 146 K/mcL (140-400); Red Blood Count 4.67 M/mcL (3.82-4.97); Red Cell Distribution Width 13.1 % (11.5-14.5); Segmented Neutrophils % 54.8 %
[2018-02-19 21:05] LABS: VBG HCO3 31 mEq/L (21-27); VBG PCO2 58 mmHg (41-51); VBG PH 7.33 pH Units (7.32-7.42); VBG PO2 37 mmHg (25-50)
[2018-02-19 21:13] LABS: INR 1.1; Prothrombin Time 12.1 Seconds (9.4-12.1)
[2018-02-19 21:16] LABS: Activated Partial Thrombo Time 32.3 Seconds (26.0-36.0)
[2018-02-19 21:33] LABS: Troponin I < 0.03 ng/mL (< 0.04)
[2018-02-19 21:34] LABS: Alanine Aminotransferase 18 Units/L (7-52); Albumin 3.5 g/dL (3.5-5.7); Albumin/Globulin Ratio 1.1 (1.1-2.2); Alkaline Phosphatase 81 Units/L (34-104); Aspartate Amino Transferase 11 Units/L (13-39); BUN/Creatinine Ratio 10 (6-26); Bilirubin,Direct 0.2 mg/dL (0.0-0.2); Bilirubin,Indirect 0.4 mg/dL (0.0-1.2); Bilirubin,Total 0.6 mg/dL (0.3-1.0); Blood Urea Nitrogen 8 mg/dL (6-20); Calcium 9.1 mg/dL (8.6-10.3); Carbon Dioxide 29 mEq/L (23-29); Chloride 100 mEq/L (98-107); Globulin 3.1 g/dL (2.4-3.5); Glucose 108 mg/dL (70-105); Osmolality,Calculated 283 (280-300); Phosphorous 2.5 mg/dL (2.7-4.5); Potassium 3.9 mEq/L (3.5-5.1); Sodium 137 mEq/L (136-145); Total Protein 6.6 g/dL (6.4-8.9); eGFR For Non-African Americans > 60 (> 60)
[2018-02-19] MEDS ORDERED: Piperacillin/Tazobactam 3.375 GM in 0.9 % Sodium Chloride Mini Bag 100 ML IVPB ONE (22:13)
--- NOTE | 2018-02-19 23:34 | Event Note ---
Date of Encounter: 02/20/18 Time of Encounter: 23:30 Patient was seen and examined. I agree with the H&P as written by the resident physician. Briefly, 57 year old female past medical history COPD on chronic O2 fibromyalgia GERD venous stasis TIA morbid obesity who presented to the ED with worsening cellulitis of the bilateral lower extremities. She has noticed erythema has worsened for a week or so. She was treated with oral antibiotics by her PCP for this and has not improved. She was put on augmentin and only took it for the last couple of days before she noticed the cellulitis worsening. In the ED she had no leukocytosis but she had mildly elevated lactic acid 2.5. She was given vancomycin and Zosyn and IV fluids in the ED. GEN: NAD CVS: RRR. S1, S2, No m/r/g RESP: CTAB ABD: Soft, NT, ND, +BS EXT: Bilateral lower extremity swelling noted with erythema extending from the feet all the way to the posterior aspect of the thighs bilaterally. A small ulceration with seeping is noted on the left anterior seaman. Lymphedema changes noted.. 2+ DP. No rashes NEURO: Nonfocal Admit to hospitalist IV vancomycin. Ezequiel the area of cellulitis to monitor progression. Check blood cultures We will try to culture the wound on the left anterior leg. IV fluids and trend lactic acid Resume home meds DVT prophylaxis
[2018-02-20] MEDS ORDERED: Acetaminophen 325 MG TABLET PO ONE (00:13)
--- NOTE | 2018-02-20 00:13 | Internal Med History&Physical ---
Date of Encounter: 02/20/18 Time of Encounter: 00:11 Internal Medicine - H&P: HPI Chief complaint: Cellulitis History of present illness: Merary Dahl is a 57-year-old female with a PMH of COPD, fibromyalgia, GERD, glaucoma, TIA, venous stasis who presented to [facility] on 02/19/18 with a chief complaint of progressively worsening cellulitis. Patient reports that appro ximately one week ago, she woke up to find her feet and ankles were erythematous. Patient had one prior episode of similar presentation; was treated with Augmentin. She reported that cellulitis continued to spread over the next several days. Erythema is now 2-3 inches above the knee. She also re ports that her legs are exquisitely tender to palpation. She has a known past history of lymphedema with chronic venous insufficiency. She admits to having chills with nausea. Upon arrival to the emergency department, patients vital signs were as follows: Temp 97.9, HR 99, RR 18, BP 118/70, O2 sat 98. Laboratory analysis inserted following: Elevated lactic acid of 2.5, phosphorus of 2.5, VBG CO2 58, VBG HCO3 31. CXR showed no acute process. In the ED, patient was given 1 bolus of normal saline, as well as a one-time dose of vancomycin and Zosyn. Blood cultures were ordered 2. Patient seen ad examined at bedside; she reports swelling, erythema, and tenderness in her LEs bilaterally. She denies N/V/D, fevers, chills, paresthesias, numbness, or tingling. No further complaints. Past Med Surg Social Fam HX - Past Medical History Medical history: cancer, COPD, fibromyalgia, GERD, glaucoma, TIA, venous stasis, other Additional medical history: pulmonary hypertension, uterine cancer, venous insufficiency, Reflex sympathic dystrophy (chronic regional pain syndrome) Psychiatric history: anxiety, depression - Past Surgical History Surgical History: cholecystectomy, hysterectomy, orthopedic, other Additional surgical history: tonsil/adnoid removed, left tendon repaired - Social History Smoking Status: Current every day smoker Packs per day: 1 Smokeless Tobacco Status: No Alcohol use: occasionally Drug use: none - Family History Mother Living Status: Still Living Hx Family Cardiac Disorders: Yes Hx Family Respiratory Disorders: Yes (copd) Hx Family Cancer: Yes Hx Family Endocrine Disorder: Yes Hx Family Neuromuscular Disorders: Yes Internal Medicine - H&P: Meds Albuterol Sulfate [Proair Hfa] 2 puff IH TID PRN #1 hfa.aer.ad 02/02/18 [Rx] GuaiFENesin ER [Mucinex] 600 mg PO BID #60 tbbp.12hr 02/02/18 [Rx] Nicotine Patch [Nicoderm] 21 mg TD DAILY #30 patch.td24 02/02/18 [Rx] Albuterol Neb [Proventil Neb] 2.5 mg IH Q6HR PRN 02/19/18 [History] Amoxicillin/Clavulanate [Augmentin] 875 mg PO BIDWM 02/19/18 [History] Furosemide [Lasix] 20 mg PO DAILY 02/19/18 [History] Mometasone Furoate [Asmanex] 1 puff IH DAILY 02/19/18 [History] Oxygen 2 l IH AD 02/19/18 [History] Spironolactone 25 mg PO DAILY 02/19/18 [History] Umeclidinium Brm/Vilanterol Tr [Anoro Ellipta 62.5-25 Mcg INH] 1 puff IH DAILY 02/19/18 [History] Allergy/AdvReac Type Severity Reaction Status Date / Time aspirin AdvReac Vomiting Verified 02/19/18 22:33 Sulfa (Sulfonamide AdvReac Vomiting Verified 02/19/18 22:33 Antibiotics) All Systems PM: A 10-system review of systems was performed and is negative for pertinent findings except as documented above in the HPI. - Constitutional Constitutional: as per HPI, no anorexia, no chills, no excessive sweating, no malaise, no weakness - EENT Eyes: as per HPI, no change in vision, no discharge, no pain, no photophobia Ears: as per HPI, no ear discharge, no ear pain, no tinnitus Nose, mouth and throat: as per HPI, no dysphagia, no nasal discharge, no neck pain, no sore throat - Cardiovascular Cardiovascular ROS IM: as per HPI, no chest pain, no diaphoresis, no dyspnea, no lightheadedness, no palpitations, no syncope - Respiratory Respiratory: as per HPI, no cough, no dyspnea, no wheezing, no excessive phlegm production - Musculoskeletal Musculoskeletal ROS IM: as per HPI, no numbness, no tingling - Integumentary Integumentary IM: as per HPI, erythema, rash - Neurological Neurological ROS: as per HPI, no confusion, no convulsions, no focal weakness, no numbness, no tingling, no tremor(s) - Psychiatric Psychiatric: as per HPI, no anxiety - Constitutional Vitals: Temp Pulse Resp BP Pulse Ox 100.1 F H 104 13 151/74 95 02/19/18 23:34 02/19/18 23:34 02/19/18 23:34 02/19/18 23:34 02/19/18 23:34 Exam: General: A&O X3, conversant, no acute distress Head: atraumatic, normocephalic Eye: PERRL, EOMI, conjuntiva pink, sclera anicteric Neck: Supple, trachea midline; No lymphadenopathy Respiratory: CTAB. No accessory muscle use, wheezes, rales, or rhonchi Cardiovascular: RRR, +S1, +S2; no murmurs, rubs, gallops Abdomen: Soft, nontender Extremities: Erythema bilaterally; tenderness Neurological: CN II-XII intact Psychiatric: Normal affect, normal mood Skin: Dry, intact Internal Med - H&P Results - Labs CBC & Chem 7: 02/20/18 02:41 02/20/18 02:41 Labs: Short CBC 02/19/18 Range/Units 20:40 WBC 6.2 (4.3-11.1) K/mcL Hgb 13.7 (11.5-15.4) g/dL Hct 42.5 (35.3-44.9) % Plt Count 146 (140-400) K/mcL Neutrophils # 3.4 (1.6-8.9) K/mcL BMP 02/19/18 20:40 Sodium 137 Potassium 3.9 Chloride 100 Carbon Dioxide 29 BUN 8 Creatinine 0.80 Glucose 108 H Calcium 9.1 Cardiac Enzymes 02/19/18 Range/Units 20:40 Troponin I < 0.03 (< 0.04) ng/mL Liver Function 02/19/18 Range/Units 20:40 Total Bilirubin 0.6 (0.3-1.0) mg/dL Direct Bilirubin 0.2 (0.0-0.2) mg/dL AST 11 L (13-39) Units/L ALT 18 (7-52) Units/L Alkaline Phosphatase 81 (34-104) Units/L Albumin 3.5 (3.5-5.7) g/dL - ABG Interpretation ABG results: 02/19/18 21:01 VBG pH 7.33 VBG pCO2 58 H VBG pO2 37 VBG HCO3 31 H - Impressions ITS Impressions Chest X-Ray 02/19/18 20:24 IMPRESSION: No acute process. D/ / Ant Philippe MD / Ant Philippe MD Interpreting Provider: Ant Philippe MD - Assessment and plan (1) Cellulitis Current Visit: Yes Status: Acute Assessment and plan: - Presented with worsening erythema of the bilateral lower extremities - Was prescribed Augmentin in the outpatient setting; symptoms continued to worsen - Legs are both exquisitely tender; erythema is 2-3 inches above the knee - Associated with nausea and chills - Labs demonstrated an elevated lactic acid at 2.5 - Blood cultures were ordered 2; patient was given a one-time dose of vancomycin and Zosyn Plan: - Continue IV Vancomycin; await blood culture results, tailor antibiotic therapy accordingly - Ezequiel area of cellulitis to monitor progression Qualifiers: Site of cellulitis: extremity Site of cellulitis of extremity: lower extremity Laterality: unspecified laterality Qualified Code(s): L03.119 - Cellulitis of unspecified part of limb (2) COPD (chronic obstructive pulmonary disease) Current Visit: Yes Status: Acute Assessment and plan: Patient has a history of underlying O2-dependent COPD at L continuous at home CXR demonstrated no acute process Plan: - O2 via NC; keep SPO2 greater than 92% - DuoNebs when necessary Qualifiers: Qualified Code(s): J44.9 - Chronic obstructive pulmonary disease, unspecified (3) Nicotine dependence Current Visit: No Status: Chronic Assessment and plan: - Resume nicotine patch Qualifiers: Qualified Code(s): F17.200 - Nicotine dependence, unspecified, uncomplicated (4) Obesity hypoventilation syndrome Current Visit: No Status: Chronic - Time Spent With Patient Total time spent is greater than 50% in coordination of care (as documented) at patient's floor/unit and/or counseling patient: 25 - 35 minutes
[2018-02-20 00:16] LABS: Bilirubin,Urine Negative (Negative); Blood,Urine Negative (Negative); Clarity,Urine Clear (Clear); Color,Urine Yellow (Yellow); Glucose,Urine (UA) Normal (Normal); Ketones,Urine Negative (Negative); Leukocyte Esterase,Urine Negative (Negative); Nitrite,Urine Negative (Negative); PH,Urine 7.5 pH Units (5.0-8.0); Protein,Urine Negative (Neg-Trace); Specific Gravity,Urine 1.019 (1.010-1.025); Urobilinogen,Urine Normal (Normal)
[2018-02-20] MEDS ORDERED: Naloxone 0.4 MG/ML INJ IVP PRN (01:30)
[2018-02-20] MEDS ORDERED: Albuterol 2.5 MG/3 ML NEBULIZER IH PRN (01:31)
[2018-02-20] MEDS ORDERED: NON-FORMULARY MEDICATION 1 EACH EACH (Oxygen [Oxygen] 2 L) IH SCH (01:45)
[2018-02-20 03:35] LABS: Basophils % 0.5 %; Eosinophils # 0.2 K/mcL (0.0-0.6); Eosinophils % 3.9 %; Hematocrit 35.3 % (35.3-44.9); Immature Granulocytes % 0.3 % (0-4); Lymphocytes # 1.7 K/mcL (0.6-4.6); Mean Corpuscular HGB Conc 32.3 g/dL (31.6-35.5); Mean Corpuscular Hemoglobin 29.3 pg (28.0-33.3); Mean Corpuscular Volume 90.7 fL (83.0-100.0); Mean Platelet Volume 11.9 fL (9.4-12.4); Monocytes # 0.6 K/mcL (0.0-1.3); Monocytes % 10.1 %; Neutrophils # 3.6 K/mcL (1.6-8.9); Platelet Count 134 K/mcL (140-400); Red Blood Count 3.89 M/mcL (3.82-4.97); Red Cell Distribution Width 13.2 % (11.5-14.5); Segmented Neutrophils % 57.2 %
[2018-02-20 03:41] LABS: Hemoglobin 11.4 g/dL (11.5-15.4)
[2018-02-20 03:54] LABS: BUN/Creatinine Ratio 9 (6-26); Blood Urea Nitrogen 7 mg/dL (6-20); Calcium 8.1 mg/dL (8.6-10.3); Carbon Dioxide 28 mEq/L (23-29); Chloride 104 mEq/L (98-107); Glucose 142 mg/dL (70-105); Osmolality,Calculated 284 (280-300); Potassium 3.6 mEq/L (3.5-5.1); Sodium 137 mEq/L (136-145); eGFR For Non-African Americans > 60 (> 60)
[2018-02-20] MEDS: Beclomethasone 80mcg MDI IH SCH (07:44)
--- NOTE | 2018-02-20 08:07 | Internal Med Progress Note ---
Hospitalist Progress Note - Encounter Date of Encounter: 02/20/18 Time of Encounter: 08:05 - Subjective Interval History: Patient with history of COPD, fibromyalgia, chronic lymphedema and chronic venous insufficiency, pulmonary hypertension, chronic pain syndrome, smoking history Patient admitted with bilateral progressive cellulitis of both lower extremity up to her knees patient started on vancomycin and Zosyn in the ER now continued on vancomycin patient had failed outpatient treatment with Augmentin denies any fever or chills white count is normal - Exam Vitals: Temp Pulse Resp BP Pulse Ox 99.5 F 107 15 107/60 94 02/20/18 02:59 02/20/18 02:59 02/20/18 02:59 02/20/18 02:59 02/20/18 02:59 Exam: General: A&O X3, conversant, no acute distress Head: atraumatic, normocephalic Eye: PERRL, EOMI, conjuntiva pink, sclera anicteric Neck: Supple, trachea midline; No lymphadenopathy Respiratory: CTAB. No accessory muscle use, wheezes, rales, or rhonchi Cardiovascular: RRR, +S1, +S2; no murmurs, rubs, gallops Abdomen: Soft, nontender Extremities: Erythema bilaterally; tenderness Neurological: CN II-XII intact Psychiatric: Normal affect, normal mood Skin: Dry, intact - Assessment and Plan (1) Chronic venous hypertension (idiopathic) with ulcer of right lower extremity Current Visit: No Status: Acute Assessment and Plan: Patient with chronic venous stasis also chronic bilateral lymphedema of lower extremity I will consult vascular surgery for input (2) Nicotine dependence Current Visit: No Status: Chronic Assessment and Plan: Chronic and continues to smoke (3) Obesity hypoventilation syndrome Current Visit: No Status: Chronic Assessment and Plan: VBG pH 7.33 cm, (4) Cellulitis Current Visit: Yes Status: Acute Assessment and Plan: Bilateral lower extremity cellulitis with failed outpatient treatment with continue on vancomycin (5) Lower extremity edema Current Visit: Yes Status: Acute Assessment and Plan: Chronic BNP 38 patient clinically is not in heart failure however will start on Lasix for diuresis that mishap with the healing of his cellulitis (6) COPD (chronic obstructive pulmonary disease) Current Visit: Yes Status: Chronic Assessment and Plan: Chronic we will continue home medication - Time Spent with Patient Total time spent is greater than 50% in coordination of care (as documented) at patient's floor/unit and/or counseling patient: Internal Medicine: Result - Labs CBC & Chem 7: 02/20/18 02:41 02/20/18 02:41 Labs: Short CBC 02/19/18 02/20/18 Range/Units 20:40 02:41 WBC 6.2 6.2 (4.3-11.1) K/mcL Hgb 13.7 11.4 L D (11.5-15.4) g/dL Hct 42.5 35.3 (35.3-44.9) % Plt Count 146 134 L (140-400) K/mcL Neutrophils # 3.4 3.6 (1.6-8.9) K/mcL BMP 02/19/18 02/20/18 20:40 02:41 Sodium 137 137 Potassium 3.9 3.6 Chloride 100 104 Carbon Dioxide 29 28 BUN 8 7 Creatinine 0.80 0.79 Glucose 108 H 142 H Calcium 9.1 8.1 L Cardiac Enzymes 02/19/18 Range/Units 20:40 Troponin I < 0.03 (< 0.04) ng/mL Liver Function 02/19/18 Range/Units 20:40 Total Bilirubin 0.6 (0.3-1.0) mg/dL Direct Bilirubin 0.2 (0.0-0.2) mg/dL AST 11 L (13-39) Units/L ALT 18 (7-52) Units/L Alkaline Phosphatase 81 (34-104) Units/L Albumin 3.5 (3.5-5.7) g/dL Urine 02/19/18 Range/Units 23:46 Urine Color Yellow (Yellow) Urine Clarity Clear (Clear) Urine pH 7.5 (5.0-8.0) pH Units Ur Specific G[place] 1.019 (1.010-1.025) Urine Protein Negative (Neg-Trace) mg/dL Urine Glucose (UA) Normal (Normal) mg/dL - ABG Interpretation ABG results: PT/INR, D-dimer PT 12.1 Seconds (9.4-12.1) 02/19/18 20:40 - Impressions Impressions Chest X-Ray 02/19/18 20:24 IMPRESSION: No acute process. D/ / Ant Philippe MD / Ant Philippe MD Interpreting Provider: Ant Philippe MD Consult Discharge Plan - Plan Referrals: Eduard Hoff MD [Primary Care Provider] - (2) Nicotine dependence Qualifiers: Substance use status: unspecified nicotine-induced disorder (4) Cellulitis Qualifiers: Site of cellulitis: extremity Site of cellulitis of extremity: lower extremity Laterality: unspecified laterality Qualified Code(s): L03.119 - Cellulitis of unspecified part of limb (6) COPD (chronic obstructive pulmonary disease) Qualifiers: COPD type: unspecified COPD Qualified Code(s): J44.9 - Chronic obstructive pulmonary disease, unspecified
[2018-02-20] MEDS ORDERED: Furosemide 20 MG TABLET PO SCH (09:00)
[2018-02-20] MEDS: Spironolactone 25 MG TABLET PO SCH (09:24)
[2018-02-20] MEDS: Furosemide 40 MG/4 ML VIAL IVP SCH ×2 (09:24→17:43)
[2018-02-20] MEDS: Nicotine 21 MG PATCH.TD24 TD SCH (09:24)
[2018-02-20] MEDS: Ipratropium/Albuterol Neb 3 ML IH SCH ×2 (15:34→22:46)
--- NOTE | 2018-02-20 16:53 | Vascular/Endovasc Consult Note ---
Date of Encounter: 02/20/18 Time of Encounter: 13:30 Assessment and Plan (1) Nicotine dependence Current Visit: Yes Status: Chronic Patient has chronic history of tobacco use Qualifiers: Nicotine product type: cigarettes Substance use status: unspecified nicotine-induced disorder Qualified Code(s): F17.219 - Nicotine dependence, cigarettes, with unspecified nicotine-induced disorders (2) Obesity hypoventilation syndrome Current Visit: No Status: Chronic Patient has chronic history of morbid obesity and pulmonary complications. (3) Cellulitis Current Visit: Yes Status: Acute Patient has bilateral lower extremity cellulitis involving the calves. This was not responsive to oral therapy and so she was seen and admitted for intravenous antibiotic therapy. I agree with antibiotic therapy. I recommended to the patient that it is imperative that she elevate her lower extremities as much as possible. When she is sitting she cannot have her legs and a dependent position. I recommended that after completion of the intravenous course of antibiotics here in the hospital and she has clinically improve that she should be treated with oral antibiotics for 10 days to 2 weeks for suppression of lower extremity skin que. Qualifiers: Site of cellulitis: extremity Site of cellulitis of extremity: lower extremity Laterality: unspecified laterality Qualified Code(s): L03.119 - Cellulitis of unspecified part of limb (4) Lower extremity edema Current Visit: Yes Status: Acute Patient has chronic lower extremity edema and lymphedema. I explained to the patient that this is not a surgical lesion. I again reviewed with her the issues that we had discussed years ago. I stressed the need for lower extremity elevation, weight loss, regular daily exercise, avoidance of dependent position of her lower extremities, and the use of compression garments once the cellulitis has resolved. I emphasized that the weight loss issue is critical to the long-term success of her lower extremity problems. Agree with referral to wound clinic both here in the hospital and for outpatient management. I also discussed with the patient the utility of an outpatient referral to physical therapy for massage therapy for the lower extremity lymphedema. Patient is also a candidate for the use of pneumatic compression devices on her lower extremities to help control the lower extremity lymphedema long-term basis. (5) COPD (chronic obstructive pulmonary disease) Current Visit: Yes Status: Chronic Patient has chronic COPD and pulmonary hypertension. Qualifiers: COPD type: unspecified COPD Qualified Code(s): J44.9 - Chronic obstructive pulmonary disease, unspecified - History of Present Illness Consult date: 02/20/18 Consult reason: Lower extremity cellulitis/edema/lymphedema Chief complaint: Lower extremity pain and redness History of present illness: Ms. Dahl is a 57 year old female Admitted yesterday via the emergency room because of worsening symptoms of her lower extremities. The patient states that she had been noticing increased swelling and pain and redness of both of her lower extremities over the past number of days. She went in to see her primary care physician on February 17 and was given a prescription of Augmentin. Because of the deterioration she sought further medical attention and was admitted for intravenous antibiotics. Her past history is complicated as she was admitted in January for respiratory distress and required a week's hospitalization. The patient did have a venous duplex scan performed on February 01 which was negative for deep venous thrombosis. She states it as she was treated with steroids at that time that the lower extremity swelling was worsened as was her weight gain. I've seen this patient once before in outpatient consultation in April 2014. At that point I was seeing the patient because of lower extremity swelling. I had reviewed with her the need for a variety of techniques to try to help control her lower extremity swelling including elevation and weight loss and exercise. I also prescribed for her Juxta lite compression garments. She has not been able to use these as she cannot put them on and take them off on her own. She has not been able to secure help at home to assist with this garment. At that time her weight was 323 pounds with a BMI of 57. The patient has multiple ongoing chronic medical problems. These include obesity, COPD, pulmonary hypertension, fibromyalgia, gastroesophageal reflux disease, reflex sympathetic dystrophy, uterine cancer history, and tobacco use. Past Med Surg Social Fam HX - Past Medical History Medical history: cancer, COPD, fibromyalgia, GERD, glaucoma, TIA, venous stasis, other Additional medical history: pulmonary hypertension, uterine cancer, venous insufficiency, Reflex sympathic dystrophy (chronic regional pain syndrome) Psychiatric history: anxiety, depression - Past Surgical History Surgical History: cholecystectomy, hysterectomy, orthopedic, other Additional surgical history: tonsil/adnoid removed, left tendon repaired - Social History Smoking Status: Current every day smoker Packs per day: 1 Smokeless Tobacco Status: No Alcohol use: occasionally Drug use: none - Family History Mother Living Status: Still Living Hx Family Cardiac Disorders: Yes Hx Family Respiratory Disorders: Yes (copd) Hx Family Cancer: Yes Hx Family Endocrine Disorder: Yes Hx Family Neuromuscular Disorders: Yes Medications and Allergies Albuterol Sulfate [Proair Hfa] 2 puff IH TID PRN #1 [id number] 02/02/18 [Rx] GuaiFENesin ER [Mucinex] 600 mg PO BID #60 tbbp.12hr 02/02/18 [Rx] Nicotine Patch [Nicoderm] 21 mg TD DAILY #30 patch.td24 02/02/18 [Rx] Albuterol Neb [Proventil Neb] 2.5 mg IH Q6HR PRN 02/19/18 [History] Amoxicillin/Clavulanate [Augmentin] 875 mg PO BIDWM 02/19/18 [History] Furosemide [Lasix] 20 mg PO DAILY 02/19/18 [History] Mometasone Furoate [Asmanex] 1 puff IH DAILY 02/19/18 [History] Oxygen 2 l IH AD 02/19/18 [History] Spironolactone 25 mg PO DAILY 02/19/18 [History] Umeclidinium Brm/Vilanterol Tr [Anoro Ellipta 62.5-25 Mcg INH] 1 puff IH DAILY 02/19/18 [History] Allergy/AdvReac Type Severity Reaction Status Date / Time aspirin AdvReac Vomiting Verified 02/19/18 22:33 Sulfa (Sulfonamide AdvReac Vomiting Verified 02/19/18 22:33 Antibiotics) All Systems Review: The remainder of the systems were reviewed and are negative Exam Vital Signs, Last 4 Hours Temp Pulse Resp BP Pulse Ox 02/20/18 15:34 20 94 02/20/18 15:20 98.8 F 94 18 101/63 99 General: Present: Conversant, No Apparent Distress, Other (Morbidly obese middle-aged white female) HEENT: Present: Atraumatic, Normocephaly, Trachea midline Neck: Present: Tracheal deviation. Absent: JVD, Midline deformity Cardiac: Present: Reg Rate and Rhythm, Normal S1 and S2, No Murmur Lungs: Present: Normal Breath Sounds, No Wheeze, Rales, Rhonchi Neuro: Present: Alert and responsive, No focal deficits noted, Cranial nerves grossly intact Abdomen: Present: Soft, Non-tender Vascular: Present: Other (I am unable to palpate pulses in her lower extremities due to her obesity and chronic edema and lymphedema. The patient has dry scaly skin. She has erythema of the foot and ankle and calves bilaterally. The extent of the erythema has been marked with a skin scribe. This apparently was placed yesterday and I do not see extension of the erythema above the level of the skin scribe markings. Patient has tenderness to touch and deep palpation of the calves. There is no crepitus present. There are no necrotic blebs. There is no odor to her skin. She is a small superficial ulcer on the anteromedial aspect of the mid distal left calf. This is draining clear fluid. There is no obvious purulence. The patient has dramatic edema of her thighs and calves and feet.) Consult Discharge Plan - Plan Referrals: Eduard Hoff MD [Primary Care Provider] -
[2018-02-21] MEDS: Ipratropium/Albuterol Neb 3 ML IH SCH ×4 (04:05→21:11)
[2018-02-21] MEDS: Furosemide 40 MG/4 ML VIAL IVP SCH ×2 (09:09→16:55)
[2018-02-21] MEDS: Nicotine 21 MG PATCH.TD24 TD SCH (09:09)
[2018-02-21] MEDS: Spironolactone 25 MG TABLET PO SCH (09:10)
[2018-02-21] MEDS: Beclomethasone 80mcg MDI IH SCH (09:50)
--- NOTE | 2018-02-21 11:15 | Internal Med Progress Note ---
Hospitalist Progress Note - Encounter Date of Encounter: 02/21/18 Time of Encounter: 09:45 - Subjective Interval History: Patient is sitting up in chair. She has noticed some improvement in redness in her lower extremities. Denies any fevers or chills. Has not been able to keep her legs elevated much while lying in bed. 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 She used to previously use compression stockings but does not have much help at home with regards to putting them on every day. - Exam Vitals: Temp Pulse Resp BP Pulse Ox 98.2 F 104 16 109/68 94 02/21/18 10:45 02/21/18 10:45 02/21/18 10:45 02/21/18 10:45 02/21/18 10:45 Exam: General: Patient is alert, mild distress, obese oriented x 3 Respiratory: Good respiratory effort. Normal breath sounds. Prolonged expiratory phase. No wheezing or crackles. Cardiovascular: Regular rate and rhythm. s1 and s2 normal No clicks, rubs, gallops, or murmurs. Abdomen: Abdomen is soft, nontender. Bowel sounds are present Musculoskeletal: Spontaneously moving all extremities , bilateral lymphedema. Erythema noted on both lower extremities up to just below the knee. Has improved within the markings placed on admission. No longer extending up to the thigh on the left side. Skin: warm, dry, intact. Neuro: Alert oriented x 3 normal cranial nerves, no focal deficits - Assessment and Plan (1) Cellulitis Current Visit: Yes Status: Acute Assessment and Plan: Vision has bilateral lower extremity cellulitis which appears to be improving overall. We will continue IV antibiotics for another day. If symptoms continue to improve, patient will most likely be discharged tomorrow. Moderate risk for complications. Encourage limb elevation. (2) Chronic venous insufficiency Current Visit: Yes Status: Chronic Assessment and Plan: Patient does have chronic lymphedema bilaterally along with stasis dermatitis changes. Vascular surgery input appreciated. Continue diuretics. (3) COPD (chronic obstructive pulmonary disease) Current Visit: Yes Status: Chronic Assessment and Plan: Not in acute exacerbation. Continue bronchodilators. (4) Nicotine dependence Current Visit: Yes Status: Chronic Assessment and Plan: On nicotine patch DVT Prophylaxis: Will place patient on subcutaneous heparin - Time Spent with Patient Total time spent is greater than 50% in coordination of care (as documented) at patient's floor/unit and/or counseling patient: Internal Medicine: Result - Labs CBC & Chem 7: 02/20/18 02:41 02/20/18 02:41 - ABG Interpretation ABG results: PT/INR, D-dimer PT 12.1 Seconds (9.4-12.1) 02/19/18 20:40 Consult Discharge Plan - Plan Referrals: Eduard Hoff MD [Primary Care Provider] - (1) Cellulitis Qualifiers: Site of cellulitis: extremity Site of cellulitis of extremity: lower extremity Laterality: unspecified laterality Qualified Code(s): L03.119 - C ellulitis of unspecified part of limb (3) COPD (chronic obstructive pulmonary disease) Qualifiers: COPD type: unspecified COPD Qualified Code(s): J44.9 - Chronic obstructive pulmonary disease, unspecified (4) Nicotine dependence Qualifiers: Nicotine product type: cigarettes Substance use status: unspecified nicotine- induced disorder Qualified Code(s): F17.219 - Nicotine dependence, cigarettes, with unspecified nicotine-induced disorders
[2018-02-21] MEDS: *HR* Heparin 5,000 UNIT/ML VIAL SQ SCH (16:55)
[2018-02-22 00:26] LABS: Enterococcus by PCR Not Detected (Not Detect); Staphylococcus aureus by PCR Not Detected (Not Detect); Streptococcus agalactiae(B)PCR Not Detected (Not Detect); blaKPC Carbapenem-Resist Gene Not Detected (Not Detect); mecA Methicillin-Resist Gene Not Detected (Not Detect); vanA/B Vancomycin-Resist Genes Not Detected (Not Detect)
[2018-02-22 00:27] LABS: Acinetobacter baumannii by PCR Not Detected (Not Detect); Candida albicans by PCR Not Detected (Not Detect); Candida glabrata by PCR Not Detected (Not Detect); Candida krusei by PCR Not Detected (Not Detect); Candida parapsilosis by PCR Not Detected (Not Detect); Candida tropicalis by PCR Not Detected (Not Detect); Enterobacter cloacae Cmplx PCR Not Detected (Not Detect); Enterobacteriaceae by PCR Not Detected (Not Detect); Escherichia coli by PCR Not Detected (Not Detect); Klebsiella oxytoca by PCR Not Detected (Not Detect); Klebsiella pneumoniae by PCR Not Detected (Not Detect); Proteus by PCR Not Detected (Not Detect); Pseudomonas aeruginosa by PCR Not Detected (Not Detect); Serratia marcescens by PCR Not Detected (Not Detect); Staphylococcus by PCR DETECTED (Not Detect); Streptococcus by PCR Not Detected (Not Detect); Streptococcus pneumoniae PCR Not Detected (Not Detect); Streptococcus pyogenes (A) PCR Not Detected (Not Detect)
[2018-02-22] MEDS: Ipratropium/Albuterol Neb 3 ML IH SCH ×4 (04:02→22:27)
[2018-02-22] MEDS: *HR* Heparin 5,000 UNIT/ML VIAL SQ SCH ×2 (06:02→16:49)
[2018-02-22] MEDS: Nicotine 21 MG PATCH.TD24 TD SCH (08:01)
[2018-02-22] MEDS: Furosemide 40 MG/4 ML VIAL IVP SCH (08:01)
[2018-02-22] MEDS: Spironolactone 25 MG TABLET PO SCH (08:01)
--- NOTE | 2018-02-22 08:47 | Electrocardiograph Report ---
[address] [place], [place] [address] Test Date: 2018-02-19 Pat Name: Carole Dahl Department: EXAMC2 Room: 3A16 Gender: F Crtt: : 1960 Requested By: Keith Albert Order Number: [id number] Reading MD: Jennifer Patricia Measurements Intervals Ramona Rate: 96 P: 50 MD: 202 QRS: 52 QRSD: 114 T: 45 QT: 355 QTc: 449 Interpretive Statements Sinus rhythm Borderline prolonged MD interval Incomplete right bundle branch block Low voltage, precordial leads Electronically Signed On 02-22-2018 8:45:58 EST by Jennifer Patricia
[2018-02-22] MEDS: Beclomethasone 80mcg MDI IH SCH (10:27)
--- NOTE | 2018-02-22 11:38 | Internal Med Progress Note ---
Hospitalist Progress Note - Encounter Date of Encounter: 02/22/18 Time of Encounter: 09:35 - Subjective Interval History: Patient is awake and alert. Sitting up in chair. Denies any new complaints. No nausea or vomiting. No fevers or chills reported overnight. - Exam Vitals: Temp Pulse Resp BP Pulse Ox 97.7 F 100 18 124/76 96 02/22/18 10:09 02/22/18 10:09 02/22/18 10:27 02/22/18 10:09 02/22/18 10:27 Exam: General: Patient is alert, no acute distress, oriented x 3 Respiratory: Good respiratory effort. Normal breath sounds. No wheezing or crackles. Cardiovascular: Regular rate and rhythm. s1 and s2 normal No clicks, rubs, gallops, or murmurs. Abdomen: Abdomen is soft, nontender. Bowel sounds are present Musculoskeletal: Spontaneously moving all extremities, bilateral lymphedema with cellulitis Skin: warm, dry, intact. Neuro: Alert oriented x 3 normal cranial nerves, no focal deficits - Assessment and Plan (1) Cellulitis Current Visit: Yes Status: Acute Assessment and Plan: Both legs are currently bandaged. Continue current antibiotics. One set of blood culture positive for gram-positive cocci. Not staph aureus. Most likely contaminant. We will wait for final culture results and also repeat blood cultures today. If another set of blood cultures negative, most likely this is a contaminant and would not need intravenous antibiotic. Encouraged limb elevation as much as possible. (2) Chronic venous insufficiency Current Visit: Yes Status: Chronic Assessment and Plan: Follow-up outpatient with PCP and vascular surgery for further management (3) COPD (chronic obstructive pulmonary disease) Current Visit: Yes Status: Chronic Assessment and Plan: Not in acute exacerbation. (4) Nicotine dependence Current Visit: Yes Status: Chronic Assessment and Plan: Continue nicotine patch DVT Prophylaxis: On subcutaneous heparin - Time Spent with Patient Total time spent is greater than 50% in coordination of care (as documented) at patient's floor/unit and/or counseling patient: Internal Medicine: Result - Labs CBC & Chem 7: 02/20/18 02:41 02/20/18 02:41 - ABG Interpretation ABG results: PT/INR, D-dimer PT 12.1 Seconds (9.4-12.1) 02/19/18 20:40 Consult Discharge Plan - Plan Referrals: Eduard Hoff MD [Primary Care Provider] - (1) Cellulitis Qualifiers: Site of cellulitis: extremity Site of cellulitis of extremity: lower extremity Laterality: unspecified laterality Qualified Code(s): L03.119 - Cellulitis of unspecified part of limb (3) COPD (chronic obstructive pulmonary disease) Qualifiers: COPD type: unspecified COPD Qualified Code(s): J44.9 - Chronic obstructive pulmonary disease, unspecified (4) Nicotine dependence Qualifiers: Nicotine product type: cigarettes Substance use status: unspecified nicotine- induced disorder Qualified Code(s): F17.219 - Nicotine dependence, cigarettes, with unspecified nicotine-induced disorders
[2018-02-22] MEDS: Furosemide 40 MG TABLET PO SCH (16:49)
[2018-02-22] MEDS ORDERED: Acetaminophen 325 MG TABLET PO ONE (22:53)
[2018-02-23] MEDS: Ipratropium/Albuterol Neb 3 ML IH SCH ×2 (04:16→10:56)
[2018-02-23] MEDS: *HR* Heparin 5,000 UNIT/ML VIAL SQ SCH (06:25)
[2018-02-23] MEDS: Nicotine 21 MG PATCH.TD24 TD SCH (08:02)
[2018-02-23] MEDS: Spironolactone 25 MG TABLET PO SCH (08:02)
[2018-02-23] MEDS: Furosemide 40 MG TABLET PO SCH (08:02)
[2018-02-23] MEDS: Beclomethasone 80mcg MDI IH SCH (10:56)
--- NOTE | 2018-02-23 13:40 | Discharge Summary ---
<Larissa Pereira - Last Filed: 02/23/18 13:37> - NOTES TO OUTPATIENT PROVIDER Notes to Outpatient Provider: Follow up recommended in the next 3-5 days with PCP for re-evaluation and follow up with wound care clinic, appt in 2-3 days. Orders not resulted at time of discharge: Pending orders 02/19/18 20:40 Culture,Blood [BC] Stat 02/22/18 08:38 Culture,Blood [BC] Routine 02/24/18 00:00 Vancomycin,Trough Timed Date of Encounter: 02/23/18 Time of Encounter: 13:38 - Discharge Diagnosis (1) Cellulitis Priority: Primary Status: Acute Qualifiers: Site of cellulitis: extremity Site of cellulitis of extremity: lower extremity Laterality: unspecified laterality Qualified Code(s): L03.119 - Cellulitis of unspecified part of limb (2) Chronic venous hypertension (idiopathic) with ulcer of right lower extremity Priority: Secondary Status: Chronic (3) COPD (chronic obstructive pulmonary disease) Priority: Secondary Status: Chronic Qualifiers: COPD type: unspecified COPD Qualified Code(s): J44.9 - Chronic obstructive pulmonary disease, unspecified (4) Nicotine dependence Priority: Secondary Status: Chronic Qualifiers: Nicotine product type: cigarettes Substance use status: unspecified nicotine-induced disorder Qualified Code(s): F17.219 - Nicotine dependence, cigarettes, with unspecified nicotine-induced disorders (5) Chronic venous insufficiency Priority: Secondary Status: Chronic Hospital course: Ms. Dahl is a 57 year old female who presented to the ER on 02/19/18 for worsening swelling and redness of the left lower extremity. Had been placed on Augmentin by PCP, had two days of medication without improvement and was told to go to the ER. The emergency department started Zosyn and vancomycin and IV fluids. CXR was negative for acute cardiopulmonary process. Laboratory work showed initial mildly elevated lactic acid of 2.5 with repeat on 02/20 within normal limits, WBC has remained within normal limits. H/H has remained stable. Blood culture performed on 02/19/18 which showed gram positive cocci, continue to await for culture results, however, could also be contaminant. Patient has had stable vital signs throughout her hospital stay and remained afebrile. Vascular surgery was consulted and recommended that patient on discharge be given outpatient antibiotic therapy and stated that patient has chronic lower extremity edema and lymphedema and is not a surgical lesion, recommended that patient use her compression stockings. Agreed with wound care management outpatient. Chronic conditions were treated. Vancomycin stopped. Started outpatient Augmentin therapy which will continue for the next 10 days. Recommend outpatient follow up with PCP in the next 3-5 days and search marketing specialist appt in the next 2-3 days with strict return precautions, patient is in understanding and agreement with disposition. Discharge discussed with: patient - Time Spent with Patient Total time spent providing and/or coordinating discharge services: Greater than 30 minutes - Discharge Medications Prescriptions: Amoxicillin/Clavulanate [Augmentin] 875 mg PO BIDWM 10 Days #20 tablet L. Acidophilus/L.bulgaricus [Lactobacillus Tablet] 1 each PO DAILY 30 Days #30 tablet Home Medications: RX: Albuterol Sulfate [Proair Hfa] 2 puff IH TID PRN #1 hfa.aer.ad 02/02/18 [Rx] RX: GuaiFENesin ER [Mucinex] 600 mg PO BID #60 tbbp.12hr 02/02/18 [Rx] RX: Nicotine Patch [Nicoderm] 21 mg TD DAILY #30 patch.td24 02/02/18 [Rx] RX: Albuterol Neb [Proventil Neb] 2.5 mg IH Q6HR PRN 02/19/18 [History] RX: Furosemide [Lasix] 20 mg PO DAILY 02/19/18 [History] RX: Mometasone Furoate [Asmanex] 1 puff IH DAILY 02/19/18 [History] RX: Oxygen 2 l IH AD 02/19/18 [History] RX: Spironolactone 25 mg PO DAILY 02/19/18 [History] RX: Umeclidinium Brm/Vilanterol Tr [Anoro Ellipta 62.5-25 Mcg INH] 1 puff IH DAILY 02/19/18 [History] Amoxicillin/Clavulanate [Augmentin] 875 mg PO BIDWM 10 Days #20 tablet 02/23/18 [Rx] L. Acidophilus/L.bulgaricus [Lactobacillus Tablet] 1 each PO DAILY 30 Days #30 tablet 02/23/18 [Rx] Allergies/Adverse Reactions: Allergy/AdvReac Type Severity Reaction Status Date / Time aspirin AdvReac Vomiting Verified 02/19/18 22:33 Sulfa (Sulfonamide AdvReac Vomiting Verified 02/19/18 22:33 Antibiotics) Date of admission: 02/19/18 22:27 Primary care physician: Eduard Hoff MD Consults: 02/20/18 08:02 Consult to Vascular Surgery [CONS] Routine Consulting Provider: [facility] Reason for Consult: severe lymphedema and venous insufficiency Time Notified: 08:03 Call Completed: No 02/20/18 09:45 Consult to Wound Care [CONS] Routine Reason for Consult: Patient previously seen for BLE cellulitis care and awaiting outpatient appt. Time Notified: 09:47 Call Completed: Yes Discharging clinician: Larissa Pereira Anticipated date of discharge: 02/23/18 - Constitutional Vitals: Temp Pulse Resp BP Pulse Ox 97.9 F 95 16 146/75 99 02/23/18 10:43 02/23/18 10:43 02/23/18 10:56 02/23/18 10:43 02/23/18 10:56 General appearance: Present: pleasant, no acute distress, answers questions appropriately Exam: . - Head Head exam: Present: atraumatic, normal inspection - Respiratory Respiratory exam: Present: CTAB. Absent: accessory muscle use, chest wall tenderness, decreased breath sounds - Cardiovascular Cardiovascular exam: Present: RRR. Absent: distant heart sounds, gallop - GI/Abdominal GI/Abdominal exam: Present: normal bowel sounds. Absent: tenderness - Extremities Exam Additional comments: Bilateral lower extremities are wrapped on examination, however, there is no erythema extending past the bandages, marking from previous location on the left leg is currently without redness, induration or pain. Distal cap refill intact - Neurological Exam Neurological exam: Present: alert, oriented X3 - Psychiatric Psychiatric exam: Present: normal affect, normal mood - Skin Skin exam: Absent: cyanosis, diaphoretic - Patient Status Disposition: Home, Self-Care Condition: Good Overall status at discharge: patient is progressing back to baseline - Discharge Instructions Instructions: Chronic Wound Care (GEN), Cellulitis (DC) Follow Up With: Eduard Hoff MD [Primary Care Provider] - (in 1-2 weeks) - Diet and Activity Activity: increase activity as tolerated Diet: advance to your usual diet <Maverick Gale - Last Filed: 02/23/18 14:55> Orders not resulted at time of discharge: Pending orders 02/19/18 20:40 Culture,Blood [BC] Stat 02/22/18 08:38 Culture,Blood [BC] Routine 02/24/18 00:00 Vancomycin,Trough Timed Date of Encounter: 02/23/18 Time of Encounter: 08:25 - Discharge Diagnosis (1) Cellulitis Status: Acute Qualifiers: Site of cellulitis: extremity Site of cellulitis of extremity: lower extremity Laterality: unspecified laterality Qualified Code(s): L03.119 - Cellulitis of unspecified part of limb (2) Chronic venous insufficiency Status: Chronic (3) COPD (chronic obstructive pulmonary disease) Status: Chronic Qualifiers: COPD type: unspecified COPD Qualified Code(s): J44.9 - Chronic obstructive pulmonary disease, unspecified (4) Nicotine dependence Status: Chronic Qualifiers: Nicotine product type: cigarettes Substance use status: unspecified nicotine-induced disorder Qualified Code(s): F17.219 - Nicotine dependence, cigarettes, with unspecified nicotine-induced disorders Hospital course: Ms. Dahl is a 57 year old female - Time Spent with Patient Total time spent providing and/or coordinating discharge services: Less than 30 minutes (8 min) Date of admission: 02/19/18 22:27 Primary care physician: Eduard Hoff MD Consults: 02/20/18 08:02 Consult to Vascular Surgery [CONS] Routine Consulting Provider: [facility] Reason for Consult: severe lymphedema and venous insufficiency Time Notified: 08:03 Call Completed: No 02/20/18 09:45 Consult to Wound Care [CONS] Routine Reason for Consult: Patient previously seen for BLE cellulitis care and awaiting outpatient appt. Time Notified: 09:47 Call Completed: Yes - Constitutional Vitals: Temp Pulse Resp BP Pulse Ox 97.8 F 102 16 131/60 95 02/23/18 14:24 02/23/18 14:24 02/23/18 14:24 02/23/18 14:24 02/23/18 14:24 General appearance: Present: cooperative, A&O X 3, answers questions appropriately - Respiratory Respiratory exam: Present: CTAB. Absent: accessory muscle use, rales, rhonchi, wheezes - GI/Abdominal GI/Abdominal exam: Present: normal bowel sounds, soft, no peritoneal signs. Absent: distended, tenderness - Extremities Exam Extremities exam: Present: warm, radial pulses palpable and symmetrical. Absent: calf tenderness, cyanotic, pedal edema Additional comments: Bilateral lower extremity edema. Both legs are currently bandaged. Erythema Continues to improve - Attending Attestation I saw evaluated and examined this patient and my medical decision-making was reviewed with the Resident Physician, Larissa Pereira. I agree with the documented findings, disposition and treatment plan as described except to any changes set forth below. We independently had [id number] contact with the patient. 57-year-old female patient with a history of COPD, fibromyalgia, chronic venous insufficiency who was hospitalized here with cellulitis involving both of her lower extremities. She had previously been treated with Augmentin for couple of days prior to arrival here. She was advised to come to the ER by her primary care provider due to worsening erythema. She received intravenous antibiotics and her symptoms have significantly improved since admission. She has had good urine output. One set of blood cultures was positive for coagulase-negative staph. Most likely contaminant. Repeat cultures have been negative. Patient is clinically stable to be discharged home. She will continue taking antibiotics for 10 more days. She will follow up with her primary care provider for further management.
[2018-02-23 14:25] VITALS: BP 131/60
[2018-02-23] MEDS ORDERED: Aminoglycoside Consult 1 EACH MC ONE (16:07)
== END 2018-02-23 16:08 | disposition home or self-care (01) | DRG 603 ==
LOC: EMEROOARM 19:24 → SUATTDRO 22:27 → 3ANU 22:27
PROVIDERS: ADMIT Pediatrics; ATTEND Internal Medicine

== ENCOUNTER 2020-07-09 22:16 | Observation (INO) ==
[2020-07-09 23:05] LABS: Basophils # 0.1 K/mcL (0.0-0.2); Basophils % 0.7 %; Eosinophils # 0.3 K/mcL (0.0-0.6); Hematocrit 45.9 % (35.3-44.9); Hemoglobin 15.2 g/dL (11.5-15.4); Immature Granulocytes % 0.3 % (0-4); Lymphocytes % 29.9 %; Mean Corpuscular HGB Conc 33.1 g/dL (31.6-35.5); Mean Corpuscular Volume 90.5 fL (83.0-100.0); Mean Platelet Volume 12.7 fL (9.4-12.4); Monocytes # 0.7 K/mcL (0.0-1.3); Monocytes % 9.7 %; Neutrophils # 3.7 K/mcL (1.6-8.9); Platelet Count 146 K/mcL (140-400); Red Blood Count 5.07 M/mcL (3.82-4.97); Red Cell Distribution Width 13.1 % (11.5-14.5); Segmented Neutrophils % 55.4 %; White Blood Count 6.7 K/mcL (4.3-11.1)
[2020-07-09 23:26] LABS: BUN/Creatinine Ratio 22 (6-26); Blood Urea Nitrogen 22 mg/dL (8-23); Calcium 9.8 mg/dL (8.6-10.3); Carbon Dioxide 29 mEq/L (23-29); Chloride 101 mEq/L (98-107); Glucose 92 mg/dL (70-105); Osmolality,Calculated 289 (280-300); Potassium 4.1 mEq/L (3.5-5.1); Sodium 138 mEq/L (136-145); Troponin I < 0.03 ng/mL (< 0.04); eGFR For African Americans > 60 (> 60); eGFR For Non-African Americans 57 (> 60)
[2020-07-10] MEDS ORDERED: Isovue-370 500 ML BOTTLE IVP ONE (00:53)
[2020-07-10] MEDS ORDERED: Ipratropium/Albuterol Neb 3 ML IH ONE (05:41)
[2020-07-10] MEDS ORDERED: predniSONE 20 MG TABLET PO ONE (05:42)
[2020-07-10] MEDS ORDERED: Acetaminophen 325 MG TABLET PO PRN (07:16)
[2020-07-10] MEDS ORDERED: Naloxone 0.4 MG/ML INJ IVP PRN (07:16)
[2020-07-10] MEDS ORDERED: Ipratropium/Albuterol Neb 3 ML IH PRN (07:18)
[2020-07-10] MEDS ORDERED: Perflutren Lipid Microsphere 1.3 ML in 0.9 % Sodium Chloride 8.7 ML IVP PRN (07:21)
[2020-07-10] MEDS: Ipratropium/Albuterol Neb 3 ML IH SCH ×3 (11:25→22:04)
[2020-07-10 13:25] LABS: Adenovirus Not Detected (Not Detect); Bordetella Pertussis Not Detected (Not Detect); Chlamydophila pneumoniae Not Detected (Not Detect); Coronavirus 229E Not Detected (Not Detect); Coronavirus HKU1 Not Detected (Not Detect); Coronavirus NL63 Not Detected (Not Detect); Coronavirus OC43 Not Detected (Not Detect); Human Metapneumovirus Not Detected (Not Detect); Human Rhinovirus/Enterovirus DETECTED (Not Detect); Influenza A Subtype 2009 H1 Not Detected (Not Detect); Influenza B Not Detected (Not Detect); Mycoplasma pneumoniae Not Detected (Not Detect); Parainfluenza Virus 1 Not Detected (Not Detect); Parainfluenza Virus 2 Not Detected (Not Detect); Parainfluenza Virus 3 Not Detected (Not Detect); Parainfluenza Virus 4 Not Detected (Not Detect); Respiratory Syncytial Virus Not Detected (Not Detect); SARS-CoV-2 Not Detected (Not Detect)
[2020-07-10] MEDS ORDERED: Nicotine 2 MG GUM BC PRN (15:10)
[2020-07-10] MEDS: Nicotine 21 MG PATCH.TD24 TD SCH (15:21)
[2020-07-10] MEDS ORDERED: Furosemide 40 MG TABLET PO ONE (15:45)
[2020-07-10] MEDS ORDERED: hydroCHLOROthiazide 25 MG TABLET PO SCH (16:00)
[2020-07-10 16:17] LABS: Hematocrit 41.9 % (35.3-44.9); Hemoglobin 13.8 g/dL (11.5-15.4); Mean Corpuscular HGB Conc 32.9 g/dL (31.6-35.5); Mean Corpuscular Hemoglobin 29.6 pg (28.0-33.3); Mean Corpuscular Volume 89.7 fL (83.0-100.0); Mean Platelet Volume 12.9 fL (9.4-12.4); Platelet Count 133 K/mcL (140-400); Red Blood Count 4.67 M/mcL (3.82-4.97); Red Cell Distribution Width 12.8 % (11.5-14.5); White Blood Count 4.7 K/mcL (4.3-11.1)
[2020-07-10 16:31] LABS: Alanine Aminotransferase 10 Units/L (7-52); Albumin 3.6 g/dL (3.5-5.7); Albumin/Globulin Ratio 1.4 (1.1-2.2); Alkaline Phosphatase 71 Units/L (34-104); Aspartate Amino Transferase 12 Units/L (13-39); BUN/Creatinine Ratio 24 (6-26); Bilirubin,Total 0.4 mg/dL (0.3-1.0); Blood Urea Nitrogen 21 mg/dL (8-23); Calcium 9.2 mg/dL (8.6-10.3); Carbon Dioxide 26 mEq/L (23-29); Chloride 103 mEq/L (98-107); Globulin 2.6 g/dL (2.4-3.5); Glucose 184 mg/dL (70-105); Osmolality,Calculated 290 (280-300); Potassium 4.2 mEq/L (3.5-5.1); Sodium 136 mEq/L (136-145); Total Protein 6.2 g/dL (6.4-8.9); eGFR For African Americans > 60 (> 60); eGFR For Non-African Americans > 60 (> 60)
[2020-07-10] MEDS: *HR* Heparin 5,000 UNIT/ML VIAL SQ SCH (17:14)
[2020-07-10] MEDS: Azithromycin 250 MG TABLET PO SCH (19:27)
[2020-07-10] MEDS: Budesonide/Formoterol 160/4.5 1 PUFF INH IH SCH (22:04)
[2020-07-11 03:01] LABS: Basophils % 0.5 %; Eosinophils # 0.1 K/mcL (0.0-0.6); Eosinophils % 1.8 %; Hemoglobin 12.9 g/dL (11.5-15.4); Immature Granulocytes % 0.3 % (0-4); Lymphocytes % 32.7 %; Mean Corpuscular HGB Conc 33.1 g/dL (31.6-35.5); Mean Corpuscular Hemoglobin 29.9 pg (28.0-33.3); Mean Corpuscular Volume 90.3 fL (83.0-100.0); Mean Platelet Volume 12.4 fL (9.4-12.4); Monocytes # 0.7 K/mcL (0.0-1.3); Monocytes % 10.7 %; Neutrophils # 3.4 K/mcL (1.6-8.9); Platelet Count 122 K/mcL (140-400); Red Blood Count 4.32 M/mcL (3.82-4.97); Red Cell Distribution Width 12.8 % (11.5-14.5); White Blood Count 6.2 K/mcL (4.3-11.1)
[2020-07-11 03:22] LABS: BUN/Creatinine Ratio 24 (6-26); Blood Urea Nitrogen 23 mg/dL (8-23); Calcium 9.1 mg/dL (8.6-10.3); Carbon Dioxide 32 mEq/L (23-29); Chloride 101 mEq/L (98-107); Glucose 106 mg/dL (70-105); Magnesium 2.1 mg/dL (1.6-2.6); Osmolality,Calculated 290 (280-300); Potassium 3.8 mEq/L (3.5-5.1); Sodium 138 mEq/L (136-145); eGFR For African Americans > 60 (> 60); eGFR For Non-African Americans 59 (> 60)
[2020-07-11] MEDS: *HR* Heparin 5,000 UNIT/ML VIAL SQ SCH (05:28)
[2020-07-11] MEDS: Ipratropium/Albuterol Neb 3 ML IH SCH ×2 (06:03→11:04)
[2020-07-11 07:19] VITALS: BP 118/76
[2020-07-11] MEDS: Azithromycin 250 MG TABLET PO SCH (08:07)
[2020-07-11] MEDS: Nicotine 21 MG PATCH.TD24 TD SCH (08:08)
[2020-07-11] MEDS ORDERED: predniSONE 20 MG TABLET PO SCH (09:00)
[2020-07-11] MEDS: Budesonide/Formoterol 160/4.5 1 PUFF INH IH SCH (11:04)
== END 2020-07-11 15:38 | disposition home health service (06) ==
LOC: EMEROOARM 22:16 → 2ANU 22:16 → SUATTDRO 07-10 06:17 → 2ANU 07-10 06:41
PROVIDERS: ADMIT Internal Medicine; ATTEND Internal Medicine

== ENCOUNTER 2021-09-21 18:48 | Inpatient (IN) ==
[2021-09-21 20:12] LABS: Basophils # 0.1 K/mcL (0.0-0.2); Basophils % 0.9 %; Eosinophils # 0.1 K/mcL (0.0-0.6); Eosinophils % 1.2 %; Hematocrit 44.4 % (35.3-44.9); Immature Granulocytes % 0.3 % (0-4); Lymphocytes # 1.8 K/mcL (0.6-4.6); Lymphocytes % 30.3 %; Mean Corpuscular HGB Conc 33.8 g/dL (31.6-35.5); Mean Corpuscular Hemoglobin 29.2 pg (28.0-33.3); Mean Corpuscular Volume 86.4 fL (83.0-100.0); Mean Platelet Volume 12.3 fL (9.4-12.4); Monocytes # 0.5 K/mcL (0.0-1.3); Monocytes % 8.5 %; Neutrophils # 3.4 K/mcL (1.6-8.9); Platelet Count 146 K/mcL (140-400); Red Blood Count 5.14 M/mcL (3.82-4.97); Red Cell Distribution Width 13.2 % (11.5-14.5); Segmented Neutrophils % 58.8 %; White Blood Count 5.8 K/mcL (4.3-11.1)
[2021-09-21 20:18] LABS: BUN/Creatinine Ratio 14 (6-26); Blood Urea Nitrogen 17 mg/dL (8-23); Calcium 9.3 mg/dL (8.6-10.3); Carbon Dioxide 27 mEq/L (23-29); Chloride 104 mEq/L (98-107); Glucose 97 mg/dL (70-105); Osmolality,Calculated 287 (280-300); Potassium 4.1 mEq/L (3.5-5.1); Sodium 138 mEq/L (136-145); Troponin I < 0.03 ng/mL (< 0.04); eGFR For African Americans 55 (> 60); eGFR For Non-African Americans 46 (> 60)
[2021-09-21 21:18] LABS: Alanine Aminotransferase 8 Units/L (7-52); Albumin 3.4 g/dL (3.5-5.7); Alkaline Phosphatase 63 Units/L (34-104); Aspartate Amino Transferase 12 Units/L (13-39); Bilirubin,Direct 0.1 mg/dL (0.0-0.2); Bilirubin,Indirect 0.4 mg/dL (0.0-1.0); Bilirubin,Total 0.5 mg/dL (0.3-1.0); Globulin 3.3 g/dL (2.4-3.5); Magnesium 2.1 mg/dL (1.6-2.6); Total Protein 6.7 g/dL (6.4-8.9)
[2021-09-21 21:38] LABS: Thyroid Stimulating Hormone 0.447 mcIU/mL (0.340-5.600)
[2021-09-21] MEDS ORDERED: Naloxone 0.4 MG/ML INJ IVP PRN (23:23)
[2021-09-22] MEDS: Nicotine 14 MG PATCH.TD24 TD SCH ×3 (01:29→20:15)
[2021-09-22] MEDS ORDERED: Perflutren Lipid Microsphere 1.3 ML in 0.9 % Sodium Chloride 8.7 ML IVP PRN (02:16)
[2021-09-22 05:36] LABS: Hematocrit 41.3 % (35.3-44.9); Hemoglobin 13.7 g/dL (11.5-15.4); Mean Corpuscular HGB Conc 33.2 g/dL (31.6-35.5); Mean Corpuscular Hemoglobin 28.8 pg (28.0-33.3); Mean Corpuscular Volume 86.9 fL (83.0-100.0); Mean Platelet Volume 12.8 fL (9.4-12.4); Platelet Count 134 K/mcL (140-400); Red Blood Count 4.75 M/mcL (3.82-4.97); Red Cell Distribution Width 13.2 % (11.5-14.5); White Blood Count 5.8 K/mcL (4.3-11.1)
[2021-09-22 05:52] LABS: INR 1.2
[2021-09-22 05:54] LABS: BUN/Creatinine Ratio 16 (6-26); Blood Urea Nitrogen 17 mg/dL (8-23); Calcium 8.9 mg/dL (8.6-10.3); Carbon Dioxide 27 mEq/L (23-29); Chloride 106 mEq/L (98-107); Chol/HDL Ratio 3.2 (0-4.9); Cholesterol 133 mg/dL (< 200); Glucose 93 mg/dL (70-105); HDL Cholesterol 41 mg/dL (40-59); LDL Cholesterol,Calculated 76 mg/dL (< 100); Osmolality,Calculated 287 (280-300); Potassium 3.7 mEq/L (3.5-5.1); Sodium 138 mEq/L (136-145); Triglycerides 81 mg/dL (< 150); eGFR For African Americans > 60 (> 60); eGFR For Non-African Americans 52 (> 60)
[2021-09-22 05:55] LABS: Activated Partial Thrombo Time 31.4 Seconds (26.0-36.0)
[2021-09-22 10:15] LABS: Troponin I < 0.03 ng/mL (< 0.04)
[2021-09-22] MEDS ORDERED: *HR* Atropine Sulfate 1 MG/10 ML SYRINGE IVP PRN (17:22)
[2021-09-22] MEDS: Budesonide/Formoterol 160/4.5 1 PUFF INH IH SCH (21:02)
[2021-09-23 01:52] LABS: Basophils # 0.1 K/mcL (0.0-0.2); Eosinophils # 0.1 K/mcL (0.0-0.6); Eosinophils % 2.1 %; Hematocrit 40.3 % (35.3-44.9); Hemoglobin 13.5 g/dL (11.5-15.4); Immature Granulocytes % 0.3 % (0-4); Lymphocytes # 2.1 K/mcL (0.6-4.6); Lymphocytes % 33.8 %; Mean Corpuscular HGB Conc 33.5 g/dL (31.6-35.5); Mean Corpuscular Hemoglobin 29.4 pg (28.0-33.3); Mean Corpuscular Volume 87.8 fL (83.0-100.0); Mean Platelet Volume 12.7 fL (9.4-12.4); Monocytes # 0.5 K/mcL (0.0-1.3); Monocytes % 8.2 %; Neutrophils # 3.3 K/mcL (1.6-8.9); Platelet Count 123 K/mcL (140-400); Red Blood Count 4.59 M/mcL (3.82-4.97); Red Cell Distribution Width 13.2 % (11.5-14.5); Segmented Neutrophils % 54.6 %; White Blood Count 6.1 K/mcL (4.3-11.1)
[2021-09-23 02:01] LABS: INR 1.2; Prothrombin Time 12.9 Seconds (9.4-12.1)
[2021-09-23 02:03] LABS: Activated Partial Thrombo Time 29.3 Seconds (26.0-36.0)
[2021-09-23 02:09] LABS: BUN/Creatinine Ratio 21 (6-26); Blood Urea Nitrogen 23 mg/dL (8-23); Calcium 8.8 mg/dL (8.6-10.3); Carbon Dioxide 28 mEq/L (23-29); Chloride 107 mEq/L (98-107); Glucose 109 mg/dL (70-105); Osmolality,Calculated 294 (280-300); Sodium 140 mEq/L (136-145); eGFR For African Americans > 60 (> 60); eGFR For Non-African Americans 51 (> 60)
[2021-09-23] MEDS: Nicotine 14 MG PATCH.TD24 TD SCH (09:28)
[2021-09-23] MEDS: Budesonide/Formoterol 160/4.5 1 PUFF INH IH SCH ×2 (09:41→20:11)
[2021-09-23] MEDS: Tiotropium 10 INH DOSE IH SCH (09:44)
[2021-09-23] MEDS: *HR* Heparin 5,000 UNIT/ML VIAL SQ SCH (20:50)
[2021-09-24] MEDS: Levalbuterol 1 PUFF INHALER IH SCH ×4 (04:16→20:06)
[2021-09-24 05:56] LABS: Hematocrit 40.9 % (35.3-44.9); Hemoglobin 13.4 g/dL (11.5-15.4); Mean Corpuscular HGB Conc 32.8 g/dL (31.6-35.5); Mean Corpuscular Hemoglobin 29.1 pg (28.0-33.3); Mean Corpuscular Volume 88.9 fL (83.0-100.0); Mean Platelet Volume 12.6 fL (9.4-12.4); Platelet Count 105 K/mcL (140-400); Red Cell Distribution Width 13.3 % (11.5-14.5); White Blood Count 6.2 K/mcL (4.3-11.1)
[2021-09-24 06:01] LABS: INR 1.2
[2021-09-24] MEDS: *HR* Heparin 5,000 UNIT/ML VIAL SQ SCH ×3 (06:13→19:28)
[2021-09-24 06:17] LABS: Calcium 8.8 mg/dL (8.6-10.3); Potassium 3.8 mEq/L (3.5-5.1)
[2021-09-24] MEDS: Budesonide/Formoterol 160/4.5 1 PUFF INH IH SCH ×2 (07:36→20:06)
[2021-09-24] MEDS: Tiotropium 10 INH DOSE IH SCH (07:37)
[2021-09-24] MEDS: Acetaminophen 325 MG TABLET PO PRN (08:48)
[2021-09-24] MEDS ORDERED: CeFAZolin Syr 2,000MG/20 ML 2,000 MG/20 ML SYRINGE IVPB ONE (10:31)
[2021-09-24] MEDS ORDERED: *HR* FentaNYL (PF) 100 MCG/2 ML VIAL ONE (11:50)
[2021-09-24] MEDS ORDERED: *HR* Midazolam HCl 2 MG/2 ML VIAL ONE ×2 (11:50→12:25)
[2021-09-24] MEDS ORDERED: 0.9 % Sodium Chloride 500 ML ONE (11:51)
[2021-09-24] MEDS ORDERED: 0.9 % Sodium Chloride 1,000 ML ONE (12:12)
[2021-09-24] MEDS ORDERED: Ketorolac 30 MG/ML VIAL IVP ONE (18:15)
[2021-09-24] MEDS: Nicotine 14 MG PATCH.TD24 TD SCH (19:58)
[2021-09-25] MEDS: Acetaminophen 325 MG TABLET PO PRN (01:52)
[2021-09-25 02:00] LABS: Eosinophils # 0.2 K/mcL (0.0-0.6); Eosinophils % 2.5 %; Immature Granulocytes % 0.3 % (0-4); Red Cell Distribution Width 13.2 % (11.5-14.5); White Blood Count 6.4 K/mcL (4.3-11.1)
[2021-09-25 02:02] LABS: Basophils # 0.1 K/mcL (0.0-0.2); Basophils % 0.9 %; Hematocrit 43.2 % (35.3-44.9); Hemoglobin 14.1 g/dL (11.5-15.4); Immature Platelets 17.5 % (1.1-6.1); Lymphocytes # 1.5 K/mcL (0.6-4.6); Lymphocytes % 24.1 %; Mean Corpuscular HGB Conc 32.6 g/dL (31.6-35.5); Mean Corpuscular Hemoglobin 29.1 pg (28.0-33.3); Mean Corpuscular Volume 89.3 fL (83.0-100.0); Mean Platelet Volume 13.1 fL (9.4-12.4); Monocytes # 0.5 K/mcL (0.0-1.3); Neutrophils # 4.1 K/mcL (1.6-8.9); Platelet Count 102 K/mcL (140-400); Red Blood Count 4.84 M/mcL (3.82-4.97); Segmented Neutrophils % 64.2 %
[2021-09-25 02:12] LABS: VBG Ionized Calcium 1.17 mmol/L (1.15-1.35)
[2021-09-25 02:16] LABS: Calcium 9.1 mg/dL (8.6-10.3); Magnesium 2.2 mg/dL (1.6-2.6); Phosphorous 2.8 mg/dL (2.7-4.5); Potassium 4.2 mEq/L (3.5-5.1)
[2021-09-25 02:17] LABS: INR 1.3
[2021-09-25] MEDS: Levalbuterol 1 PUFF INHALER IH SCH ×2 (03:56→10:45)
[2021-09-25] MEDS: *HR* Heparin 5,000 UNIT/ML VIAL SQ SCH (05:43)
[2021-09-25] MEDS ORDERED: 0.9 % Sodium Chloride 1,000 ML IVC ONE (09:10)
[2021-09-25] MEDS: Tiotropium 10 INH DOSE IH SCH (10:45)
[2021-09-25] MEDS: Budesonide/Formoterol 160/4.5 1 PUFF INH IH SCH (10:46)
[2021-09-25] MEDS: Nicotine 14 MG PATCH.TD24 TD SCH (11:44)
[2021-09-25 12:11] VITALS: BP 160/71; PULSE 77; TEMP 98.4; O2SAT 97
== END 2021-09-25 15:34 | disposition home or self-care (01) | DRG 243 ==
LOC: 2NNU 18:48 → EMEROOARM 18:48 → SUATTDRO 22:42 → 2NNU 09-22 00:25
PROVIDERS: ADMIT Student in an Organized Health Care Education/Training Program; ATTEND Family Medicine